=== PATIENT | male | born 1960 | race Caucasian/White ===

== ENCOUNTER → 2017-01-29 | Outpatient (CLI) | payer BC ==
--- NOTE | 2017-01-29 13:54 | RAD ---
Rib series including frontal chest radiograph 4 views of the right ribs 01/29/2017 Indication: Right-sided rib pain. Cough. Findings: No pneumothorax is identified. There is a right basilar infiltrate with possible underlying atelectasis or trace pleural effusion. Minimal left basilar infiltrate also noted. Heart size is normal. No evidence of rib fracture is identified. No evidence of acute osseous abnormality is identified. Impression: 1. Bilateral basilar infiltrates right greater than left. Possible small underlying effusion or atelectasis on the right. Recommend radiographic follow-up to ensure complete resolution common exclude underlying pathology 2. No evidence of acute osseous abnormality.
== END | disposition home or self-care (01) ==
LOC: RAD 13:14
PROVIDERS: ATTEND Nurse Practitioner Family
DX: R91.8 Other nonspecific abnormal finding of lung field (principal); R07.81 Pleurodynia; R05 Cough
CPT/HCPCS: 71101

== ENCOUNTER 2017-02-15 11:34 | Inpatient (IN) | payer BC ==
[~2017-02-15] VITALS: Ht 188 cm; Wt 112.9 kg
[2017-02-15] VITALS (14 sets, daily range): BP systolic 107–154; BP diastolic 61–92
--- NOTE | 2017-02-15 11:52 | EKG ---
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
[2017-02-15 12:01] LABS: BASO # 0.1 x10^3/uL (0.0-0.2); BASO % 1 % (0-3); EOS % 5 % (0-3); HEMOGLOBIN 15.2 g/dL (13.0-17.5); LYMPH # 1.1 x10^3/uL (1.0-4.8); LYMPH % 11 % (24-48); MEAN CORPUSCULAR HEMOGLOBIN 29 pg (25-35); MEAN CORPUSCULAR HGB CONC 35 g/dL (31-37); MEAN CORPUSCULAR VOLUME 84 fL (79-100); MONO % 6 % (0-9); NEUT % 77 % (31-73); PLATELET COUNT 184 x10^3/uL (140-400); RED BLOOD COUNT 5.26 x10^6/uL (4.30-5.70); RED CELL DISTRIBUTION WIDTH 13.4 % (11.5-14.5); WHITE BLOOD COUNT 10.5 x10^3/uL (4.0-11.0)
[2017-02-15] MEDS ORDERED: dilTIAZem IV PUSH 25 MG/5 ML VIAL ONE (12:01)
[2017-02-15 12:11] LABS: CALCIUM 9.2 mg/dL (8.5-10.1); CREATININE 1.1 mg/dL (0.7-1.3); GFR 69.5; POTASSIUM 4.3 mmol/L (3.5-5.1)
[2017-02-15 12:13] LABS: INR 1.2 (0.8-1.1); PROTHROMBIN TIME PATIENT 14.1 SEC (11.7-14.0)
--- NOTE | 2017-02-15 12:14 | PHYS DOC ---
Adult General Chief Complaint Chief Complaint: Palpitations HPI HPI Patient is a 56 year old male who presents with tachycardia. He states his symptoms started about 3 weeks ago after he was working out in his yard and he started having body aches in his chest. He states his symptoms get worse. He saw a chiropractor who told him he had [address] He states later that night after they put his ribs back into place at she felt worse. He was seen by his primary care physician and was given muscle relaxants and a week later he had some mild hemoptysis and was started on Levaquin. He states today his symptoms got worse. He denies any shortness of breath fevers chills or chest pain but he just feels weak. He states 2 days ago he saw his primary care physician his heart rate was 77. He denies any other past medical history other than taking Levaquin and Flexeril right now. Review of Systems Review of Systems Constitutional: Denies fever or chills [] Eyes: Denies change in visual acuity, redness, or eye pain [] HENT: Denies nasal congestion or sore throat [] Respiratory: Denies cough or shortness of breath [] Cardiovascular: No additional information not addressed in HPI [] GI: Denies abdominal pain, nausea, vomiting, bloody stools or diarrhea [] : Denies dysuria or hematuria [] Musculoskeletal: Denies back pain or joint pain [] Integument: Denies rash or skin lesions [] Neurologic: Denies headache, focal weakness or sensory changes [] Endocrine: Denies polyuria or polydipsia [] Current Medications Current Medications Current Medications Medications (Trade) Dose Ordered Sig/Yuridia Start Time Stop Time Status Last Admin Dose Admin Diltiazem HCl (Cardizem) 25 mg STK-MED ONCE 02/15/17 12:01 02/15/17 12:02 DC Diltiazem HCl 125 mg/Dextrose 125 ml @ 0 mls/hr 1X ONCE 02/15/17 12:15 02/15/17 12:16 DC 02/15/17 12:23 5 MLS/HR Allergies Allergies Physical Exam Physical Exam Constitutional: Well developed, well nourished, no acute distress, non-toxic appearance. [] HENT: Normocephalic, atraumatic, bilateral external ears normal, oropharynx moist, no oral exudates, nose normal. [] Eyes: PERRLA, EOMI, conjunctiva normal, no discharge. [] Neck: Normal range of motion, no tenderness, supple, no stridor. [] Cardiovascular:Heart rate regular rhythm, no murmur [] Lungs & Thorax: Bilateral breath sounds clear to auscultation [] Abdomen: Bowel sounds normal, soft, no tenderness, no masses, no pulsatile masses. [] Skin: Warm, dry, no erythema, no rash. [] Back: No tenderness, no CVA tenderness. [] Extremities: No tenderness, no cyanosis, no clubbing, ROM intact, no edema. [] Neurologic: Alert and oriented X 3, normal motor function, normal sensory function, no focal deficits noted. [] Psychologic: Affect normal, judgement normal, mood normal. [] Current Patient Data Vital Signs Vital Signs Date Time Temp Pulse Resp B/P (MAP) Pulse Ox O2 Delivery O2 Flow Rate FiO2 02/15/17 12:25 148 21 119/86 (97) 98 Nasal Cannula 2.0 02/15/17 11:40 98.4 98.4 Lab Values Laboratory Tests Test 02/15/17 11:49 White Blood Count 10.5 x10^3/uL (4.0-11.0) Red Blood Count 5.26 x10^6/uL (4.30-5.70) Hemoglobin 15.2 g/dL (13.0-17.5) Hematocrit 44.0 % (39.0-53.0) Mean Corpuscular Volume 84 fL (79-100) Mean Corpuscular Hemoglobin 29 pg (25-35) Mean Corpuscular Hemoglobin Concent 35 g/dL (31-37) Red Cell Distribution Width 13.4 % (11.5-14.5) Platelet Count 184 x10^3/uL (140-400) Neutrophils (%) (Auto) 77 % (31-73) H Lymphocytes (%) (Auto) 11 % (24-48) L Monocytes (%) (Auto) 6 % (0-9) Eosinophils (%) (Auto) 5 % (0-3) H Basophils (%) (Auto) 1 % (0-3) Neutrophils # (Auto) 8.0 x10^3uL (1.8-7.7) H Lymphocytes # (Auto) 1.1 x10^3/uL (1.0-4.8) Monocytes # (Auto) 0.7 x10^3/uL (0.0-1.1) Eosinophils # (Auto) 0.5 x10^3/uL (0.0-0.7) Basophils # (Auto) 0.1 x10^3/uL (0.0-0.2) Prothrombin Time 14.1 SEC (11.7-14.0) H Prothrombin Time INR 1.2 (0.8-1.1) H D-Dimer (Kelsey) 3.96 ug/mlFEU (0.00-0.50) H Sodium Level 139 mmol/L (136-145) Potassium Level 4.3 mmol/L (3.5-5.1) Chloride Level 103 mmol/L (98-107) Carbon Dioxide Level 27 mmol/L (21-32) Anion Gap 9 (6-14) Blood Urea Nitrogen 15 mg/dL (8-26) Creatinine 1.1 mg/dL (0.7-1.3) Estimated GFR (Cockcroft-Gault) 69.5 Glucose Level 113 mg/dL (70-99) H Calcium Level 9.2 mg/dL (8.5-10.1) Magnesium Level 2.0 mg/dL (1.8-2.4) Creatine Kinase 136 U/L (39-308) Creatine Kinase MB (Mass) 1.2 ng/mL (0.0-3.6) Creatine Kinase MB Relative Index 0.9 % (0-4) Troponin I Quantitative 0.023 ng/mL (0.000-0.055) KB-Pji-C-Type Natriuretic Peptide 243 pg/mL (0-124) H Lipase 127 U/L (73-393) Thyroid Stimulating Hormone (TSH) 3.246 uIU/mL (0.358-3.74) Laboratory Tests 02/15/17 11:49 Laboratory Tests 02/15/17 11:49 EKG EKG EKG shows sinus tach [address] elevations or T-wave inversions, QTC 4 and 45 ms, normal axis, and believe this is a flutter based on my interpretation, as interpreted by me. Radiology/Procedures Radiology/Procedures [] Impressions: A flutter Course & Med Decision Making Course & Med Decision Making Pertinent Labs and Imaging studies reviewed. (See chart for details) I believe his EKG is a flutter, he was started on 10 of diltiazem IV push and then a drip. CT angios pending at this time. Patient is being admitted to the hospitalist Dr. Rousseau, in stable condition. His rate has improved from the 150s. Dragon Disclaimer Dragon Disclaimer This electronic medical record was generated, in whole or in part, using a voice recognition dictation system. Departure Departure Impression: Primary Impression: Tachycardia Disposition: 09 ADMITTED INPATIENT Admitting Physician: Jaja Rousseau Condition: STABLE Referrals: SIOMARA GRANT MD (PCP) RANDALL MALONE MD Feb 15, 2017 12:14
[2017-02-15] MEDS ORDERED: dilTIAZem IV PUSH 25 MG/5 ML VIAL IVP ONE (12:15)
--- NOTE | 2017-02-15 12:15 | RAD ---
Portable AP upright view CXR: Clinical indications: Tachycardia and chest pain. Comparison: January 21, 2017. Findings: No acute lung infiltrate or pleural effusion or pulmonary edema or lung mass or pneumothorax is seen. The heart size, pulmonary vasculature, mediastinum and both maksim are unremarkable. Impression: No acute radiographic abnormality is seen.
[2017-02-15 12:25] LABS: CKMB MASS 1.2 ng/mL (0.0-3.6)
[2017-02-15] MEDS ORDERED: IOHEXOL 300 MG/ML 75 ML VIAL IV ONE (13:45)
--- NOTE | 2017-02-15 14:57 | RAD ---
CTA of the chest with and without contrast Clinical indications: Chest pain Shortness of breath. Irregular heartbeat. Tachycardia. Productive cough. Technique: Noncontrast axial localizer was performed. After IV infusion of 75 cc of Omnipaque 300, helical CT scanning of the chest was performed using the CT pulmonary embolism protocol. A coronal MIP reconstruction was generated. PQRS Compliance Statement: One or more of the following individualized dose reduction techniques were utilized for this examination: 1. Automated exposure control 2. Adjustment of the mA and/or kV according to patient size 3. Use of iterative reconstruction technique Comparison: No previous chest CT available. Findings: Moderate pulmonary embolism is seen bilaterally. On the right side, emboli are seen within the right main pulmonary artery and right lower lobe and right upper lobe pulmonary arteries. There is no opacification of posterior and medial basal segment pulmonary arteries of the right lower lobe. On the left side, embolism is seen within the proximal left lower lobe pulmonary artery extending into secondary branches small pulmonary seen within the left upper lobe pulmonary arteries extending into the apex. No saddle embolism is seen within the main pulmonary trunk. No focal aneurysmal dilatation or dissection of the thoracic aorta is seen. The heart size is at the upper limits of normal. No pericardial effusion is seen. No enlarged thoracic lymphadenopathy is seen. Moderate size right-sided pleural effusion is seen. There is associated compressive atelectasis and/or consolidation of the right lower lobe. Minimal left-sided pleural effusion is seen. There is mild posterior costophrenic angle atelectasis on the left side. A small 4 mm noncalcified lung nodule is seen within the periphery of the left upper lobe. The proximal bronchial tree is patent. No adrenal mass is seen. There is a cyst of the posterior aspect of the lateral segment of left lobe liver. No osteolytic process is seen. IMPRESSION: Moderate bilateral pulmonary emboli. Moderate size right-sided pleural effusion with associated compressive atelectasis or consolidation of the right lower lobe. Minimal left-sided pleural effusion is seen. 4 mm noncalcified lung nodule within the left upper lobe. If at high risk for lung malignancy, follow-up chest CT in 12 months is recommended according to the Fleischner criteria. If the patient has primary malignancy, then a follow-up chest CT in 3 months may be needed. Note-this critical result was called to the patient's floor nurse, Ely, at 2:53 PM on February 15, 2017.
[2017-02-15] MEDS ORDERED: ONDANSETRON PF 4 MG/2 ML VIAL. IV PRN (15:00)
[2017-02-15] MEDS ORDERED: ONDANSETRON ODT 4 MG TAB.RAPDIS. PO PRN (15:00)
[2017-02-15] MEDS ORDERED: ACETAMINOPHEN 500 MG TABLET PO PRN (15:00)
[2017-02-15] MEDS ORDERED: MORPHINE SULFATE 2 MG/ML DISP.SYRIN. IV PRN (15:00)
--- NOTE | 2017-02-15 15:54 | PDOC1 ---
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 BUt today more SOA, palpitations hence went to ER and was found to have atrial flutter. News to patient, no past medical, clean living, very active, no recent sx, no meds at home, non smoker, non drinking, CTA done bec of clincial hx and elevate d dimer and shows moderate sized bilateral PE, He is hemodynamically stable, no leg swelling, denies fam hx of hypercoag d.o Past Medical History Cardiovascular: No pertinent hx Pulmonary: No pertinent hx GI: No pertinent hx Heme/Onc: No pertinent hx Hepatobiliary: No pertinent hx Psych: No pertinent hx Rheumatologic: No pertinent hx Infectious disease: No pertinent hx ENT: No pertinent hx Renal/: No pertinent hx Endocrine: No pertinent hx Dermatology: No pertinent hx Past Surgical History Past Surgical History: No pertinent history Family History Family History: No Significant Social History Smoke: No ALCOHOL: none Drugs: None Current Problem List Problem List Problems Medical Problems: (1) Tachycardia Status: Acute Problems: Current Medications Current Medications Current Medications Diltiazem HCl (Cardizem) 10 mg 1X ONCE IVP Last administered on 02/15/17 12: 08; Start 02/15/17 at 12:15; Stop 02/15/17 at 12:16; Status DC Diltiazem HCl 125 mg/Dextrose 125 ml @ 0 mls/hr 1X ONCE IV Last administered on 02/15/17 12:23; Start 02/15/17 at 12:15; Stop 02/15/17 at 12:16; Status DC Diltiazem HCl (Cardizem) 25 mg STK-MED ONCE .ROUTE ; Start 02/15/17 at 12:01; Stop 02/15/17 at 12:02; Status DC Iohexol (Omnipaque 300 Mg/ml) 75 ml 1X ONCE IV Last administered on 13:53; Start 02/15/17 at 13:45; Stop 02/15/17 at 13:50; Status DC Enoxaparin Sodium (Lovenox 120mg Syringe) 120 mg Q12HR SQ ; Start 02/15/17 at 21:00 Enoxaparin Sodium (Lovenox 120mg Syringe) 120 mg 1X ONCE SQ Last administered on 02/15/17 15:24; Start 02/15/17 at 15:00; Stop 02/15/17 at 15:01; Status DC Acetaminophen (Tylenol) 500 mg PRN Q6HRS PRN PO MILD PAIN / TEMP; Start at 15:00 Ondansetron HCl (Zofran) 4 mg PRN Q6HRS PRN IV NAUSEA/VOMITING; Start at 15:00 Ondansetron HCl (Zofran Odt) 4 mg PRN Q6HRS PRN PO NAUSEA/VOMITING; Start at 15:00 Morphine Sulfate 2 mg PRN Q2HR PRN IV PAIN; Start 02/15/17 at 15:00 Allergies Allergies: Coded Allergies: Penicillins (Verified Allergy, Unknown, Unknown, 02/15/17) Childhood allergy, unknown response. ROS Review of System as per HPI, all else is neg Physical Exam General: Alert, Oriented X3, Cooperative, No acute distress HEENT: Atraumatic, PERRLA, EOMI Lungs: Clear to auscultation Heart: S1S2, RRR, no thrills, no rubs Cardiovascular: S1, S2 Abdomen: Normal bowel sounds, Soft, No tenderness, No hepatosplenomegaly, No masses Male Genitals Exam: normal genitalia, normal prostate PELVIC: Nml ext genitalia Extremities: No clubbing, No cyanosis, No edema, Normal pulses, No tenderness/ swelling Skin: No rashes, No breakdown, No significant lesion Neuro: Normal gait, Normal speech, Strength at 5/5 X4 ext, Normal tone, Sensation intact, Cranial nerves 3-12 NL, Reflexes 2+ Psych/Mental Status: Mental status NL, Mood NL Vitals Vitals Vital Signs Date Time Temp Pulse Resp B/P (MAP) Pulse Ox O2 Delivery O2 Flow Rate FiO2 02/15/17 12:55 149 23 118/85 (96) 99 Nasal Cannula 2.0 02/15/17 11:40 98.4 98.4 Labs Labs Laboratory Tests Test 02/15/17 11:49 White Blood Count 10.5 x10^3/uL (4.0-11.0) Red Blood Count 5.26 x10^6/uL (4.30-5.70) Hemoglobin 15.2 g/dL (13.0-17.5) Hematocrit 44.0 % (39.0-53.0) Mean Corpuscular Volume 84 fL (79-100) Mean Corpuscular Hemoglobin 29 pg (25-35) Mean Corpuscular Hemoglobin Concent 35 g/dL (31-37) Red Cell Distribution Width 13.4 % (11.5-14.5) Platelet Count 184 x10^3/uL (140-400) Neutrophils (%) (Auto) 77 % (31-73) Lymphocytes (%) (Auto) 11 % (24-48) Monocytes (%) (Auto) 6 % (0-9) Eosinophils (%) (Auto) 5 % (0-3) Basophils (%) (Auto) 1 % (0-3) Neutrophils # (Auto) 8.0 x10^3uL (1.8-7.7) Lymphocytes # (Auto) 1.1 x10^3/uL (1.0-4.8) Monocytes # (Auto) 0.7 x10^3/uL (0.0-1.1) Eosinophils # (Auto) 0.5 x10^3/uL (0.0-0.7) Basophils # (Auto) 0.1 x10^3/uL (0.0-0.2) Prothrombin Time 14.1 SEC (11.7-14.0) Prothromb Time International Ratio 1.2 (0.8-1.1) D-Dimer (Kelsey) 3.96 ug/mlFEU (0.00-0.50) Sodium Level 139 mmol/L (136-145) Potassium Level 4.3 mmol/L (3.5-5.1) Chloride Level 103 mmol/L (98-107) Carbon Dioxide Level 27 mmol/L (21-32) Anion Gap 9 (6-14) Blood Urea Nitrogen 15 mg/dL (8-26) Creatinine 1.1 mg/dL (0.7-1.3) Estimated GFR (Cockcroft-Gault) 69.5 Glucose Level 113 mg/dL (70-99) Calcium Level 9.2 mg/dL (8.5-10.1) Magnesium Level 2.0 mg/dL (1.8-2.4) Creatine Kinase 136 U/L (39-308) Creatine Kinase MB (Mass) 1.2 ng/mL (0.0-3.6) Creatine Kinase MB Relative Index 0.9 % (0-4) Troponin I Quantitative 0.023 ng/mL (0.000-0.055) IM-Iip-X-Type Natriuretic Peptide 243 pg/mL (0-124) Lipase 127 U/L (73-393) Thyroid Stimulating Hormone (TSH) 3.246 uIU/mL (0.358-3.74) Laboratory Tests Test 02/15/17 11:49 White Blood Count 10.5 x10^3/uL (4.0-11.0) Red Blood Count 5.26 x10^6/uL (4.30-5.70) Hemoglobin 15.2 g/dL (13.0-17.5) Hematocrit 44.0 % (39.0-53.0) Mean Corpuscular Volume 84 fL (79-100) Mean Corpuscular Hemoglobin 29 pg (25-35) Mean Corpuscular Hemoglobin Concent 35 g/dL (31-37) Red Cell Distribution Width 13.4 % (11.5-14.5) Platelet Count 184 x10^3/uL (140-400) Neutrophils (%) (Auto) 77 % (31-73) Lymphocytes (%) (Auto) 11 % (24-48) Monocytes (%) (Auto) 6 % (0-9) Eosinophils (%) (Auto) 5 % (0-3) Basophils (%) (Auto) 1 % (0-3) Neutrophils # (Auto) 8.0 x10^3uL (1.8-7.7) Lymphocytes # (Auto) 1.1 x10^3/uL (1.0-4.8) Monocytes # (Auto) 0.7 x10^3/uL (0.0-1.1) Eosinophils # (Auto) 0.5 x10^3/uL (0.0-0.7) Basophils # (Auto) 0.1 x10^3/uL (0.0-0.2) Prothrombin Time 14.1 SEC (11.7-14.0) Prothromb Time International Ratio 1.2 (0.8-1.1) D-Dimer (Kelsey) 3.96 ug/mlFEU (0.00-0.50) Sodium Level 139 mmol/L (136-145) Potassium Level 4.3 mmol/L (3.5-5.1) Chloride Level 103 mmol/L (98-107) Carbon Dioxide Level 27 mmol/L (21-32) Anion Gap 9 (6-14) Blood Urea Nitrogen 15 mg/dL (8-26) Creatinine 1.1 mg/dL (0.7-1.3) Estimated GFR (Cockcroft-Gault) 69.5 Glucose Level 113 mg/dL (70-99) Calcium Level 9.2 mg/dL (8.5-10.1) Magnesium Level 2.0 mg/dL (1.8-2.4) Creatine Kinase 136 U/L (39-308) Creatine Kinase MB (Mass) 1.2 ng/mL (0.0-3.6) Creatine Kinase MB Relative Index 0.9 % (0-4) Troponin I Quantitative 0.023 ng/mL (0.000-0.055) OQ-Ord-H-Type Natriuretic Peptide 243 pg/mL (0-124) Lipase 127 U/L (73-393) Thyroid Stimulating Hormone (TSH) 3.246 uIU/mL (0.358-3.74) VTE Prophylaxis Ordered VTE Prophylaxis Devices: Yes VTE Pharmacological Prophylaxi: Yes Assessment/Plan Assessment/Plan 1. 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 NEw atrial flutter POA, now NSR - cards has been consulted, TSH pending, likely sec to above, echo check Dw him and RN at bedside, all qs answered dw whole family at bedside ALLEN MURILLO MD Feb 15, 2017 15:54
--- NOTE | 2017-02-15 17:16 | PDOC ---
PULMONARY PROGRESS NOTES Vitals Vital Signs Date Time Temp Pulse Resp B/P (MAP) Pulse Ox O2 Delivery O2 Flow Rate FiO2 02/15/17 16:19 Nasal Cannula 2.0 02/15/17 14:53 97.7 77 20 115/77 (90) 96 97.7 Cardiovascular: S1, S2 Labs Laboratory Tests Test 02/15/17 11:49 White Blood Count 10.5 x10^3/uL (4.0-11.0) Red Blood Count 5.26 x10^6/uL (4.30-5.70) Hemoglobin 15.2 g/dL (13.0-17.5) Hematocrit 44.0 % (39.0-53.0) Mean Corpuscular Volume 84 fL (79-100) Mean Corpuscular Hemoglobin 29 pg (25-35) Mean Corpuscular Hemoglobin Concent 35 g/dL (31-37) Red Cell Distribution Width 13.4 % (11.5-14.5) Platelet Count 184 x10^3/uL (140-400) Neutrophils (%) (Auto) 77 % (31-73) Lymphocytes (%) (Auto) 11 % (24-48) Monocytes (%) (Auto) 6 % (0-9) Eosinophils (%) (Auto) 5 % (0-3) Basophils (%) (Auto) 1 % (0-3) Neutrophils # (Auto) 8.0 x10^3uL (1.8-7.7) Lymphocytes # (Auto) 1.1 x10^3/uL (1.0-4.8) Monocytes # (Auto) 0.7 x10^3/uL (0.0-1.1) Eosinophils # (Auto) 0.5 x10^3/uL (0.0-0.7) Basophils # (Auto) 0.1 x10^3/uL (0.0-0.2) Prothrombin Time 14.1 SEC (11.7-14.0) Prothromb Time International Ratio 1.2 (0.8-1.1) D-Dimer (Kelsey) 3.96 ug/mlFEU (0.00-0.50) Sodium Level 139 mmol/L (136-145) Potassium Level 4.3 mmol/L (3.5-5.1) Chloride Level 103 mmol/L (98-107) Carbon Dioxide Level 27 mmol/L (21-32) Anion Gap 9 (6-14) Blood Urea Nitrogen 15 mg/dL (8-26) Creatinine 1.1 mg/dL (0.7-1.3) Estimated GFR (Cockcroft-Gault) 69.5 Glucose Level 113 mg/dL (70-99) Calcium Level 9.2 mg/dL (8.5-10.1) Magnesium Level 2.0 mg/dL (1.8-2.4) Creatine Kinase 136 U/L (39-308) Creatine Kinase MB (Mass) 1.2 ng/mL (0.0-3.6) Creatine Kinase MB Relative Index 0.9 % (0-4) Troponin I Quantitative 0.023 ng/mL (0.000-0.055) OD-Coh-K-Type Natriuretic Peptide 243 pg/mL (0-124) Lipase 127 U/L (73-393) Thyroid Stimulating Hormone (TSH) 3.246 uIU/mL (0.358-3.74) Laboratory Tests Test 02/15/17 11:49 White Blood Count 10.5 x10^3/uL (4.0-11.0) Red Blood Count 5.26 x10^6/uL (4.30-5.70) Hemoglobin 15.2 g/dL (13.0-17.5) Hematocrit 44.0 % (39.0-53.0) Mean Corpuscular Volume 84 fL (79-100) Mean Corpuscular Hemoglobin 29 pg (25-35) Mean Corpuscular Hemoglobin Concent 35 g/dL (31-37) Red Cell Distribution Width 13.4 % (11.5-14.5) Platelet Count 184 x10^3/uL (140-400) Neutrophils (%) (Auto) 77 % (31-73) Lymphocytes (%) (Auto) 11 % (24-48) Monocytes (%) (Auto) 6 % (0-9) Eosinophils (%) (Auto) 5 % (0-3) Basophils (%) (Auto) 1 % (0-3) Neutrophils # (Auto) 8.0 x10^3uL (1.8-7.7) Lymphocytes # (Auto) 1.1 x10^3/uL (1.0-4.8) Monocytes # (Auto) 0.7 x10^3/uL (0.0-1.1) Eosinophils # (Auto) 0.5 x10^3/uL (0.0-0.7) Basophils # (Auto) 0.1 x10^3/uL (0.0-0.2) Prothrombin Time 14.1 SEC (11.7-14.0) Prothromb Time International Ratio 1.2 (0.8-1.1) D-Dimer (Kelsey) 3.96 ug/mlFEU (0.00-0.50) Sodium Level 139 mmol/L (136-145) Potassium Level 4.3 mmol/L (3.5-5.1) Chloride Level 103 mmol/L (98-107) Carbon Dioxide Level 27 mmol/L (21-32) Anion Gap 9 (6-14) Blood Urea Nitrogen 15 mg/dL (8-26) Creatinine 1.1 mg/dL (0.7-1.3) Estimated GFR (Cockcroft-Gault) 69.5 Glucose Level 113 mg/dL (70-99) Calcium Level 9.2 mg/dL (8.5-10.1) Magnesium Level 2.0 mg/dL (1.8-2.4) Creatine Kinase 136 U/L (39-308) Creatine Kinase MB (Mass) 1.2 ng/mL (0.0-3.6) Creatine Kinase MB Relative Index 0.9 % (0-4) Troponin I Quantitative 0.023 ng/mL (0.000-0.055) PB-Nfl-W-Type Natriuretic Peptide 243 pg/mL (0-124) Lipase 127 U/L (73-393) Thyroid Stimulating Hormone (TSH) 3.246 uIU/mL (0.358-3.74) Impression . NOTE DICTATED ACUTE PE PLEURAL EFFUSION RELATED TO PE, NO NEED FOR THORACENTESIS VENOUS DOPPLER OF LOWER EXT ODESSA MCCOY MD Feb 15, 2017 17:16
[2017-02-15] MEDS: RIVAROXABAN 15 MG TABLET. PO SCH (17:54)
[2017-02-15] MEDS ORDERED: LEVO500T8 PO (19:25)
[2017-02-15] MEDS ORDERED: CYCL7.5T PO (19:25)
--- NOTE | 2017-02-15 19:25 | RAD ---
Bilateral Lower Extremity Venous Doppler Ultrasound History: Bilateral PE Comparison: None Procedure: Color flow, duplex, spectral analysis and 2D images are obtained with and without compression in the area of the common femoral vein, superficial femoral vein - femoral vein junction, main femoral vein (superficial femoral vein) and popliteal vein. Veins of the proximal calf are also imaged. Findings: There is DVT within the right popliteal vein. There is normal duplex flow, color flow and compressibility of all remaining visualized vein segments. No evidence of deep venous thrombus is seen on the left. Impression: Positive DVT in the right popliteal vein. Electronically signed by: Renzo Martins III, MD (02/15/2017 7:22 PM) [id number]
[2017-02-16] VITALS (9 sets, daily range): BP systolic 89–124; BP diastolic 53–73
--- NOTE | 2017-02-16 04:40 | CONS ---
DATE OF CONSULTATION: 02/15/2017 ATTENDING PHYSICIAN: Dr. Jaja Rousseau REASON FOR CONSULTATION: The patient is seen in pulmonary consultation at the request of Dr. Rousseau for abnormal CT of the chest revealing nodule and pulmonary embolism along with right-sided effusion. HISTORY OF PRESENT ILLNESS: The patient is a 56-year-old male that presented with acute onset of shortness of breath associated with palpitations. This morning, he was more short of breath than usual. The patient traveled approximately two weeks ago and took 1-1/2 hour flight to [place]. He returned and started to experience some pleuritic type of discomfort. His symptoms have progressed to increasing shortness of breath, hemoptysis and palpitation. As a consequence, he presented. He underwent CT of the chest. I personally reviewed it. There is bilateral pulmonary emboli. There is effusion on the right. He reports no paroxysmal nocturnal dyspnea or pedal edema. He reports no calf pain in the lower extremities. There is no family history of thrombophilia. He does not have a history of cancer. He recently had a colonoscopy, which was negative. PAST MEDICAL HISTORY: None. PAST SURGICAL HISTORY: He has had previous laparoscopic knee surgery over 20 years ago. FAMILY HISTORY: No family history of thrombophilia. SOCIAL HISTORY: He denies alcohol or tobacco. 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 CURRENT MEDICATION: List was reviewed. ALLERGIES: PENICILLIN. PHYSICAL EXAMINATION: GENERAL: The patient was in no respiratory distress. VITAL SIGNS: Stable. O2 saturation currently on 2 liters was 98%. HEENT: Eyes: The sclerae were nonicteric. NECK: Jugular venous distention was not elevated. No lymphadenopathy. CHEST: Full expansion. LUNGS: Adequate airway flow and no wheezes. CARDIOVASCULAR: Regular rate and rhythm with S1, S2, no S3. ABDOMEN: Soft, nontender and nondistended. EXTREMITIES: No clubbing, cyanosis or edema. NEUROLOGIC: The patient was awake, alert and following commands. A detailed neuro exam was not performed. LABORATORY DATA: Reviewed. White count was normal. Hemoglobin and hematocrit were normal. Electrolytes were noted. D-dimer was elevated. IMPRESSION: 1. Acute respiratory failure present upon admission secondary to acute pulmonary embolism. 2. Acute pulmonary embolism. 3. Right-sided effusion related to the pulmonary embolism. 4. Pleurisy related to pulmonary embolism. 5. Left upper lobe nodule 4 mm in a nonsmoker, no need to repeat scan. 6. Palpitation secondary to above. PLAN: 1. Continue Lovenox 2. Initiate Eliquis. 3. The patient was instructed not to travel for the next 2 weeks. 4. Consult cardiology, already performed, suspect arrhythmia related to PE. 5. Check 6-minute walk prior to discharge. 6. Recommend treatment for 6 months and then rule out hypercoagulable state. I do appreciate the privilege in sharing in the patient's care. ODESSA MCCOY MD DR: RYAN/luciana JOB#: [id number] / [id number]
[2017-02-16 04:51] LABS: BASO # 0.1 x10^3/uL (0.0-0.2); BASO % 1 % (0-3); EOS % 8 % (0-3); HEMATOCRIT 38.5 % (39.0-53.0); LYMPH # 1.7 x10^3/uL (1.0-4.8); LYMPH % 21 % (24-48); MEAN CORPUSCULAR HEMOGLOBIN 28 pg (25-35); MEAN CORPUSCULAR HGB CONC 34 g/dL (31-37); MEAN CORPUSCULAR VOLUME 84 fL (79-100); MONO % 7 % (0-9); NEUT % 64 % (31-73); PLATELET COUNT 178 x10^3/uL (140-400); RED BLOOD COUNT 4.57 x10^6/uL (4.30-5.70); RED CELL DISTRIBUTION WIDTH 13.8 % (11.5-14.5); WHITE BLOOD COUNT 8.3 x10^3/uL (4.0-11.0)
[2017-02-16 05:09] LABS: CALCIUM 8.4 mg/dL (8.5-10.1); CREATININE 0.9 mg/dL (0.7-1.3); GFR 87.6
--- NOTE | 2017-02-16 09:57 | PDOC2 ---
PETR LOVE BLEACH TESTER 02/16/17 0957: CARDIAC CONSULT DATE OF CONSULT Date of Consult DATE: 02/16/17 TIME: 09:52 REASON FOR CONSULT Reason for Consult: Atrial Flutter REFERRING PHYSICIAN Referring Physician: Onelia SOURCE Source: Chart review, Patient HISTORY OF PRESENT ILLNESS HISTORY OF PRESENT ILLNESS This is a pleasant 56 yo male admitted for complains of weakness, SOA, and chest discomfort. Upon admission he was also noted with atrial flutter and was placed on cardizem. By hx this is new for him. He works with mostly sitting all day, sedentary. 3 weeks ago he started complaining of some SOA mainly due to inability to take a deep breath and rib pain more like spasm originating to his right rib cage then went to his left. It was initially thought for displaced ribs which he saw a chiropractor then later was given antibiotics. He was then placed on antibiotics a different one last week since he was coughing still and noted with hemoptysis. His weakness became worse as well as his coughing. Denies any past CAD, arrhythmia, VTE, clotting disorders and he does not take any routine medications except for the ones he was recently given. Upon further imaging he was noted with bilateral PE and RLE DVT. Denies any CA or any recent long distance travel. He did have some swelling to both ankles about 3 weeks ago but has resolved immediately since then. Denies any leg pains. PAST MEDICAL HISTORY Past Medical History No pertinent history PAST SURGICAL HISTORY Past Surgical History: Arthroscopy (left knee remotely) FAMILY HISTORY Family History: Cancer SOCIAL HISTORY Smoke: No ALCOHOL: none Drugs: None Lives: with Family CURRENT MEDICATIONS CURRENT MEDICATIONS Current Medications Medications (Trade) Dose Ordered Sig/Yuridia Route PRN Reason Start Time Stop Time Status Last Admin Dose Admin Diltiazem HCl (Cardizem) 10 mg 1X ONCE IVP 02/15/17 12:02/15/17 12:16 DC 02/15/17 12:08 Diltiazem HCl 125 mg/Dextrose 125 ml @ 0 mls/hr 1X ONCE IV 02/15/17 12:15 02/15/17 12:16 DC 02/15/17 12:23 Iohexol (Omnipaque 300 Mg/ml) 75 ml 1X ONCE IV 02/15/17 13:45 02/15/17 13:50 DC 02/15/17 13:53 Enoxaparin Sodium (Lovenox 120mg Syringe) 120 mg 1X ONCE SQ 02/15/17 15:00 02/15/17 15:01 DC 02/15/17 15:24 Rivaroxaban (Xarelto) 15 mg BIDWMEALS PO 02/15/17 17:00 02/15/17 17:54 Diltiazem HCl 125 mg/Dextrose 125 ml @ 0 mls/hr CONT PRN IV SEE I/O RECORD 02/16/17 06:00 02/16/17 06:12 ALLERGIES ALLERGIES: Coded Allergies: Penicillins (Verified Allergy, Intermediate, Unknown, 02/15/17) Childhood allergy, unknown response. albuterol (Verified Allergy, Intermediate, Shortness of Air, 02/15/17) ROS Review of System 14 point ROS evlauated with pertinent positives noted per HPI PHYSICAL EXAM General: Alert, Oriented X3, Cooperative, No acute distress HEENT: Atraumatic, Mucous membr. moist/pink Lungs: Clear to auscultation, Normal air movement Heart: Regular rate, Normal S1, Normal S2, Other (2/6 systolic murmur to LLS border) Abdomen: Soft, No tenderness Extremities: No cyanosis, No edema Skin: No breakdown, No significant lesion Neuro: Normal speech, Sensation intact Psych/Mental Status: Mood NL MUSCULOSKELETAL: Osteoarthritic changes both hands VITALS VITALS Vital Signs Date Time Temp Pulse Resp B/P (MAP) Pulse Ox O2 Delivery O2 Flow Rate FiO2 02/16/17 08:38 Nasal Cannula 2.0 02/16/17 06:00 64 116/66 (83) 02/16/17 03:15 97.9 18 99 97.9 LABS Lab: Laboratory Tests Test 02/15/17 11:49 02/15/17 21:15 02/16/17 03:00 White Blood Count 10.5 x10^3/uL (4.0-11.0) 8.3 x10^3/uL (4.0-11.0) Red Blood Count 5.26 x10^6/uL (4.30-5.70) 4.57 x10^6/uL (4.30-5.70) Hemoglobin 15.2 g/dL (13.0-17.5) 13.0 g/dL (13.0-17.5) Hematocrit 44.0 % (39.0-53.0) 38.5 % (39.0-53.0) Mean Corpuscular Volume 84 fL (79-100) 84 fL (79-100) Mean Corpuscular Hemoglobin 29 pg (25-35) 28 pg (25-35) Mean Corpuscular Hemoglobin Concent 35 g/dL (31-37) 34 g/dL (31-37) Red Cell Distribution Width 13.4 % (11.5-14.5) 13.8 % (11.5-14.5) Platelet Count 184 x10^3/uL (140-400) 178 x10^3/uL (140-400) Neutrophils (%) (Auto) 77 % (31-73) 64 % (31-73) Lymphocytes (%) (Auto) 11 % (24-48) 21 % (24-48) Monocytes (%) (Auto) 6 % (0-9) 7 % (0-9) Eosinophils (%) (Auto) 5 % (0-3) 8 % (0-3) Basophils (%) (Auto) 1 % (0-3) 1 % (0-3) Neutrophils # (Auto) 8.0 x10^3uL (1.8-7.7) 5.3 x10^3uL (1.8-7.7) Lymphocytes # (Auto) 1.1 x10^3/uL (1.0-4.8) 1.7 x10^3/uL (1.0-4.8) Monocytes # (Auto) 0.7 x10^3/uL (0.0-1.1) 0.6 x10^3/uL (0.0-1.1) Eosinophils # (Auto) 0.5 x10^3/uL (0.0-0.7) 0.6 x10^3/uL (0.0-0.7) Basophils # (Auto) 0.1 x10^3/uL (0.0-0.2) 0.1 x10^3/uL (0.0-0.2) Prothrombin Time 14.1 SEC (11.7-14.0) Prothromb Time International Ratio 1.2 (0.8-1.1) D-Dimer (Kelsey) 3.96 ug/mlFEU (0.00-0.50) Sodium Level 139 mmol/L (136-145) 141 mmol/L (136-145) Potassium Level 4.3 mmol/L (3.5-5.1) 4.0 mmol/L (3.5-5.1) Chloride Level 103 mmol/L (98-107) 106 mmol/L (98-107) Carbon Dioxide Level 27 mmol/L (21-32) 26 mmol/L (21-32) Anion Gap 9 (6-14) 9 (6-14) Blood Urea Nitrogen 15 mg/dL (8-26) 12 mg/dL (8-26) Creatinine 1.1 mg/dL (0.7-1.3) 0.9 mg/dL (0.7-1.3) Estimated GFR (Cockcroft-Gault) 69.5 87.6 Glucose Level 113 mg/dL (70-99) 94 mg/dL (70-99) Calcium Level 9.2 mg/dL (8.5-10.1) 8.4 mg/dL (8.5-10.1) Magnesium Level 2.0 mg/dL (1.8-2.4) Creatine Kinase 136 U/L (39-308) Creatine Kinase MB (Mass) 1.2 ng/mL (0.0-3.6) Creatine Kinase MB Relative Index 0.9 % (0-4) Troponin I Quantitative 0.023 ng/mL (0.000-0.055) 0.038 ng/mL (0.000-0.055) 0.022 ng/mL (0.000-0.055) YV-Lxq-U-Type Natriuretic Peptide 243 pg/mL (0-124) Lipase 127 U/L (73-393) Thyroid Stimulating Hormone (TSH) 3.246 uIU/mL (0.358-3.74) ASSESSMENT/PLAN ASSESSMENT/PLAN 1. Atrial flutter with RVR: new onset likely due to PE. back in SR with cardizem drip. 2. Bilateral PE/RLE DVT Recommendations 1. NOAC per pulmonary 2. Will titrate off cardizem drip and start on PO metoprolol. Will titrate down per BP trend. 3. TTE 4. Will plan for event monitor and note burden. Problems: KE SALDANA MD 02/17/17 0136: CARDIAC CONSULT ALLERGIES ALLERGIES: Coded Allergies: Penicillins (Verified Allergy, Intermediate, Unknown, 02/15/17) Childhood allergy, unknown response. albuterol (Verified Allergy, Intermediate, Shortness of Air, 02/15/17) ASSESSMENT/PLAN ASSESSMENT/PLAN Late entry for 02/16/2017 Pt.s een and examined. agree with above [employer] note. 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 echo wnl thanks for consultation. Problems: PETR LOVE APRN Feb 16, 2017 09:57 KE SALDANA MD Feb 17, 2017 01:36
[2017-02-16] MEDS ORDERED: METOPROLOL TART IMMED RELEASE 25 MG TABLET. PO SCH (10:00)
[2017-02-16] MEDS: RIVAROXABAN 15 MG TABLET. PO SCH (10:27)
--- NOTE | 2017-02-16 12:24 | PDOC ---
PROGRESS NOTES Chief Complaint Chief Complaint CC: palpitations History of Present Illness History of Present Illness Saw patient at the bedside today. He appears well and not in acute distress. Pulse is regular and heart is ok. Probably will get discharged today if ok with specialists. Consult with Dr. Thapa (Heme and Onc) to discuss hypercoagulable state of the patient. Vitals Vitals Vital Signs Date Time Temp Pulse Resp B/P (MAP) Pulse Ox O2 Delivery O2 Flow Rate FiO2 02/16/17 10:59 96.4 71 18 120/71 (87) 100 Room Air 96.4 02/16/17 08:38 2.0 Physical Exam General: Alert, Oriented X3, Cooperative, No acute distress Heart: Regular rate, Normal S1, Normal S2, Other (2/6 systolic murmur to LLS border) Lungs: Clear Abdomen: Soft, No tenderness Extremities: No cyanosis, No edema, Normal pulses Skin: No breakdown, No significant lesion Labs LABS Laboratory Tests Test 02/15/17 21:15 02/16/17 03:00 Troponin I Quantitative 0.038 ng/mL (0.000-0.055) 0.022 ng/mL (0.000-0.055) White Blood Count 8.3 x10^3/uL (4.0-11.0) Red Blood Count 4.57 x10^6/uL (4.30-5.70) Hemoglobin 13.0 g/dL (13.0-17.5) Hematocrit 38.5 % (39.0-53.0) Mean Corpuscular Volume 84 fL (79-100) Mean Corpuscular Hemoglobin 28 pg (25-35) Mean Corpuscular Hemoglobin Concent 34 g/dL (31-37) Red Cell Distribution Width 13.8 % (11.5-14.5) Platelet Count 178 x10^3/uL (140-400) Neutrophils (%) (Auto) 64 % (31-73) Lymphocytes (%) (Auto) 21 % (24-48) Monocytes (%) (Auto) 7 % (0-9) Eosinophils (%) (Auto) 8 % (0-3) Basophils (%) (Auto) 1 % (0-3) Neutrophils # (Auto) 5.3 x10^3uL (1.8-7.7) Lymphocytes # (Auto) 1.7 x10^3/uL (1.0-4.8) Monocytes # (Auto) 0.6 x10^3/uL (0.0-1.1) Eosinophils # (Auto) 0.6 x10^3/uL (0.0-0.7) Basophils # (Auto) 0.1 x10^3/uL (0.0-0.2) Sodium Level 141 mmol/L (136-145) Potassium Level 4.0 mmol/L (3.5-5.1) Chloride Level 106 mmol/L (98-107) Carbon Dioxide Level 26 mmol/L (21-32) Anion Gap 9 (6-14) Blood Urea Nitrogen 12 mg/dL (8-26) Creatinine 0.9 mg/dL (0.7-1.3) Estimated GFR (Cockcroft-Gault) 87.6 Glucose Level 94 mg/dL (70-99) Calcium Level 8.4 mg/dL (8.5-10.1) Review of Systems Review of Systems fatigue and weakness Assessment and Plan Assessmemt and Plan Problems Medical Problems: (1) Tachycardia Status: Acute Assessment: Hypercoagulable state with PE and DVT Cardiac Arrhythmia Plan: Switch diltiazem drop to pill Continue anticoagulation xarelto Probably discharge today is ok with specialists Consult with Dr. Alanis Young regarding hypercoagulable state Problems: Comment Review of Relevant I have reviewed the following items uma (where applicable) has been applied. Labs Laboratory Tests Test 02/15/17 11:49 02/15/17 21:15 02/16/17 03:00 White Blood Count 10.5 x10^3/uL (4.0-11.0) 8.3 x10^3/uL (4.0-11.0) Red Blood Count 5.26 x10^6/uL (4.30-5.70) 4.57 x10^6/uL (4.30-5.70) Hemoglobin 15.2 g/dL (13.0-17.5) 13.0 g/dL (13.0-17.5) Hematocrit 44.0 % (39.0-53.0) 38.5 % (39.0-53.0) Mean Corpuscular Volume 84 fL (79-100) 84 fL (79-100) Mean Corpuscular Hemoglobin 29 pg (25-35) 28 pg (25-35) Mean Corpuscular Hemoglobin Concent 35 g/dL (31-37) 34 g/dL (31-37) Red Cell Distribution Width 13.4 % (11.5-14.5) 13.8 % (11.5-14.5) Platelet Count 184 x10^3/uL (140-400) 178 x10^3/uL (140-400) Neutrophils (%) (Auto) 77 % (31-73) 64 % (31-73) Lymphocytes (%) (Auto) 11 % (24-48) 21 % (24-48) Monocytes (%) (Auto) 6 % (0-9) 7 % (0-9) Eosinophils (%) (Auto) 5 % (0-3) 8 % (0-3) Basophils (%) (Auto) 1 % (0-3) 1 % (0-3) Neutrophils # (Auto) 8.0 x10^3uL (1.8-7.7) 5.3 x10^3uL (1.8-7.7) Lymphocytes # (Auto) 1.1 x10^3/uL (1.0-4.8) 1.7 x10^3/uL (1.0-4.8) Monocytes # (Auto) 0.7 x10^3/uL (0.0-1.1) 0.6 x10^3/uL (0.0-1.1) Eosinophils # (Auto) 0.5 x10^3/uL (0.0-0.7) 0.6 x10^3/uL (0.0-0.7) Basophils # (Auto) 0.1 x10^3/uL (0.0-0.2) 0.1 x10^3/uL (0.0-0.2) Prothrombin Time 14.1 SEC (11.7-14.0) Prothromb Time International Ratio 1.2 (0.8-1.1) D-Dimer (Kelsey) 3.96 ug/mlFEU (0.00-0.50) Sodium Level 139 mmol/L (136-145) 141 mmol/L (136-145) Potassium Level 4.3 mmol/L (3.5-5.1) 4.0 mmol/L (3.5-5.1) Chloride Level 103 mmol/L (98-107) 106 mmol/L (98-107) Carbon Dioxide Level 27 mmol/L (21-32) 26 mmol/L (21-32) Anion Gap 9 (6-14) 9 (6-14) Blood Urea Nitrogen 15 mg/dL (8-26) 12 mg/dL (8-26) Creatinine 1.1 mg/dL (0.7-1.3) 0.9 mg/dL (0.7-1.3) Estimated GFR (Cockcroft-Gault) 69.5 87.6 Glucose Level 113 mg/dL (70-99) 94 mg/dL (70-99) Calcium Level 9.2 mg/dL (8.5-10.1) 8.4 mg/dL (8.5-10.1) Magnesium Level 2.0 mg/dL (1.8-2.4) Creatine Kinase 136 U/L (39-308) Creatine Kinase MB (Mass) 1.2 ng/mL (0.0-3.6) Creatine Kinase MB Relative Index 0.9 % (0-4) Troponin I Quantitative 0.023 ng/mL (0.000-0.055) 0.038 ng/mL (0.000-0.055) 0.022 ng/mL (0.000-0.055) CO-Hiz-R-Type Natriuretic Peptide 243 pg/mL (0-124) Lipase 127 U/L (73-393) Thyroid Stimulating Hormone (TSH) 3.246 uIU/mL (0.358-3.74) Laboratory Tests Test 02/15/17 21:15 02/16/17 03:00 Troponin I Quantitative 0.038 ng/mL (0.000-0.055) 0.022 ng/mL (0.000-0.055) White Blood Count 8.3 x10^3/uL (4.0-11.0) Red Blood Count 4.57 x10^6/uL (4.30-5.70) Hemoglobin 13.0 g/dL (13.0-17.5) Hematocrit 38.5 % (39.0-53.0) Mean Corpuscular Volume 84 fL (79-100) Mean Corpuscular Hemoglobin 28 pg (25-35) Mean Corpuscular Hemoglobin Concent 34 g/dL (31-37) Red Cell Distribution Width 13.8 % (11.5-14.5) Platelet Count 178 x10^3/uL (140-400) Neutrophils (%) (Auto) 64 % (31-73) Lymphocytes (%) (Auto) 21 % (24-48) Monocytes (%) (Auto) 7 % (0-9) Eosinophils (%) (Auto) 8 % (0-3) Basophils (%) (Auto) 1 % (0-3) Neutrophils # (Auto) 5.3 x10^3uL (1.8-7.7) Lymphocytes # (Auto) 1.7 x10^3/uL (1.0-4.8) Monocytes # (Auto) 0.6 x10^3/uL (0.0-1.1) Eosinophils # (Auto) 0.6 x10^3/uL (0.0-0.7) Basophils # (Auto) 0.1 x10^3/uL (0.0-0.2) Sodium Level 141 mmol/L (136-145) Potassium Level 4.0 mmol/L (3.5-5.1) Chloride Level 106 mmol/L (98-107) Carbon Dioxide Level 26 mmol/L (21-32) Anion Gap 9 (6-14) Blood Urea Nitrogen 12 mg/dL (8-26) Creatinine 0.9 mg/dL (0.7-1.3) Estimated GFR (Cockcroft-Gault) 87.6 Glucose Level 94 mg/dL (70-99) Calcium Level 8.4 mg/dL (8.5-10.1) Medications Current Medications Diltiazem HCl (Cardizem) 10 mg 1X ONCE IVP Last administered on 02/15/17 12: 08; Start 02/15/17 at 12:15; Stop 02/15/17 at 12:16; Status DC Diltiazem HCl 125 mg/Dextrose 125 ml @ 0 mls/hr 1X ONCE IV Last administered on 02/15/17 12:23; Start 02/15/17 at 12:15; Stop 02/15/17 at 12:16; Status DC Diltiazem HCl (Cardizem) 25 mg STK-MED ONCE .ROUTE ; Start 02/15/17 at 12:01; Stop 02/15/17 at 12:02; Status DC Iohexol (Omnipaque 300 Mg/ml) 75 ml 1X ONCE IV Last administered on 13:53; Start 02/15/17 at 13:45; Stop 02/15/17 at 13:50; Status DC Enoxaparin Sodium (Lovenox 120mg Syringe) 120 mg Q12HR SQ ; Start 02/15/17 at 21:00; Stop 02/15/17 at 21:00; Status DC Enoxaparin Sodium (Lovenox 120mg Syringe) 120 mg 1X ONCE SQ Last administered on 02/15/17 15:24; Start 02/15/17 at 15:00; Stop 02/15/17 at 15:01; Status DC Acetaminophen (Tylenol) 500 mg PRN Q6HRS PRN PO MILD PAIN / TEMP; Start at 15:00 Ondansetron HCl (Zofran) 4 mg PRN Q6HRS PRN IV NAUSEA/VOMITING; Start at 15:00 Ondansetron HCl (Zofran Odt) 4 mg PRN Q6HRS PRN PO NAUSEA/VOMITING; Start at 15:00 Morphine Sulfate 2 mg PRN Q2HR PRN IV PAIN; Start 02/15/17 at 15:00 Rivaroxaban (Xarelto) 15 mg BIDWMEALS PO Last administered on 02/16/17 10:27 ; Start 02/15/17 at 17:00 Diltiazem HCl 125 mg/Dextrose 125 ml @ 0 mls/hr CONT PRN IV SEE I/O RECORD Last administered on 02/16/17 06:12; Start 02/16/17 at 06:00; Stop 02/16/17 at 09:56; Status DC Metoprolol Tartrate (Lopressor) 25 mg BID PO Last administered on 02/16/17 10 :27; Start 02/16/17 at 10:00 Active Scripts Active Reported Levofloxacin 500 Mg Tablet 1 Tab PO DAILY Cyclobenzaprine Hcl 7.5 Mg Tablet 7.5 Mg PO TID Vitals/I & O Vital Sign - Last 24 Hours 02/15/17 02/15/17 02/15/17 02/15/17 12:25 12:35 12:45 12:55 Pulse 148 146 146 149 Resp 21 23 21 23 B/P (MAP) 119/86 (97) 106/83 (91) 110/87 (95) 118/85 (96) Pulse Ox 98 99 99 99 O2 Delivery Nasal Cannula Nasal Cannula Nasal Cannula Nasal Cannula O2 Flow Rate 2.0 2.0 2.0 2.0 02/15/17 02/15/17 02/15/17 02/15/17 13:05 13:15 13:30 13:40 Pulse 150 146 146 150 Resp 20 18 21 22 B/P (MAP) 114/79 (91) 131/82 (98) 90/80 (83) 88/73 (78) Pulse Ox 100 100 98 100 O2 Delivery Nasal Cannula Nasal Cannula Nasal Cannula Nasal Cannula O2 Flow Rate 2.0 2.0 2.0 2.0 02/15/17 02/15/17 02/15/17 02/15/17 14:53 14:53 15:00 15:20 Temp 97.7 97.7 97.7 97.7 Pulse 77 77 77 75 Resp 20 20 20 20 B/P (MAP) 115/77 (90) 115/77 (90) 126/74 (91) 107/74 (85) Pulse Ox 96 96 98 98 O2 Delivery Room Air Room Air Nasal Cannula Nasal Cannula 02/15/17 02/15/17 02/15/17 02/15/17 15:35 15:50 16:05 16:19 Pulse 81 75 76 Resp 20 20 20 B/P (MAP) 154/84 (107) 140/79 (99) 134/78 (96) Pulse Ox 100 98 97 O2 Delivery Nasal Cannula Nasal Cannula Nasal Cannula Nasal Cannula O2 Flow Rate 2.0 02/15/17 02/15/17 02/15/17 02/15/17 16:35 17:05 17:35 18:35 Pulse 71 77 75 76 Resp 20 20 20 20 B/P (MAP) 134/79 (97) 148/92 (110) 126/77 (93) 126/71 (89) Pulse Ox 99 98 98 98 O2 Delivery Nasal Cannula Nasal Cannula Nasal Cannula Nasal Cannula 02/15/17 02/15/17 02/15/17 02/15/17 19:35 19:45 20:00 21:00 Temp 98.6 98.6 Pulse 75 78 70 Resp 20 B/P (MAP) 122/73 (89) 128/72 (90) 114/65 (81) Pulse Ox 98 O2 Delivery Nasal Cannula Nasal Cannula O2 Flow Rate 2.0 02/15/17 02/16/17 02/16/17 02/16/17 22:40 00:01 01:00 02:00 Temp 97.7 97.7 Pulse 64 66 66 70 Resp 18 B/P (MAP) 119/61 (80) 124/64 (84) 119/65 (83) 120/65 (83) Pulse Ox 99 O2 Delivery Nasal Cannula O2 Flow Rate 2.0 02/16/17 02/16/17 02/16/17 02/16/17 03:15 04:00 05:00 06:00 Temp 97.9 97.9 Pulse 61 62 60 64 Resp 18 B/P (MAP) 123/68 (86) 114/59 (77) 89/53 (65) 116/66 (83) Pulse Ox 99 O2 Delivery Nasal Cannula O2 Flow Rate 2.0 02/16/17 02/16/17 02/16/17 08:38 10:27 10:59 Temp 96.4 96.4 Pulse 71 71 Resp 18 B/P (MAP) 122/71 120/71 (87) Pulse Ox 100 O2 Delivery Nasal Cannula Room Air O2 Flow Rate 2.0 Intake and Output 02/16/17 02/16/17 02/17/17 15:00 23:00 07:00 Intake Total 300 ml Balance 300 ml REID HAQ III, DO Feb 16, 2017 12:24
--- NOTE | 2017-02-16 12:30 | CARD ---
APPROVED REPORT EXAM: Two-dimensional and M-mode echocardiogram with Doppler and color Doppler. Other Information Quality : Good INDICATION LV Function:Systolic Pulmonary Embolism 2D DIMENSIONS RVDd3.7 (2.9-3.5cm)Left Atrium(2D)4.4 (1.6-4.0cm) IVSd1.3 (0.7-1.1cm)Aortic Root(2D)3.1 (2.0-3.7cm) LVDd5.0 (3.9-5.9cm)LVOT Diameter2.1 (1.8-2.4cm) PWd1.4 (0.7-1.1cm)LVDs2.5 (2.5-4.0cm) FS (%) 30.0 %SV97.0 ml LVEF(%)60.0 (>50%) Aortic Valve AoV Peak Dinh.180.2cm/sAoV VTI31.0cm AO Peak GR.13.0mmHgLVOT VTI 26.60cm AO Mean GR.7mmHgAVA (VTI)3.07cm2 Mitral Valve MV E Lorlavca67.7cm/sMV DECEL [id number] MV A Pgjsixhe88.5cm/sE/A Ratio1.0 TDI Lateral E' P. V16.35cm/sMedial E' P. V5.53cm/s E/Lateral E'5.1E/Medial E'15.1 Tricuspid Valve TR P. Ihmehqph396lq/sRAP CALVXLNT3hrVo TR Peak Gr.51ekKhCNFB26poPi Pulmonary Vein S1 Mblwhvtu88.0cm/sS2 Ncwjafhj07.26cm/s D2 Vozrviyu03.3cm/s LEFT VENTRICLE The left ventricle is normal size. There is mild concentric left ventricular hypertrophy. The left ve ntricular systolic function is normal and the ejection fraction is within normal range. The Ejection Fraction is 55-60%. There is normal LV segmental wall motion. Transmitral Doppler flow pattern is Gra de I-abnormal relaxation pattern. RIGHT VENTRICLE The right ventricle is normal size. The right ventricular systolic function is normal. ATRIA The left atrium is mildly dilated. The right atrium size is normal. The interatrial septum is intact with no evidence for an atrial septal defect or patent foramen ovale as noted on 2-D or Doppler imagi ng. AORTIC VALVE The aortic valve is sclerotic. Doppler and Color Flow revealed no significant aortic regurgitation. T here is no significant aortic valvular stenosis. MITRAL VALVE The mitral valve is normal in structure and function. There is no evidence of mitral valve prolapse. There is no mitral valve stenosis. Doppler and Color Flow revealed no mitral valve regurgitation note d. TRICUSPID VALVE The tricuspid valve is normal in structure and function. Doppler and Color Flow revealed trace tricus pid regurgitation. The PA pressure was estimated at 33 mmHg. There is no tricuspid valve stenosis. PULMONIC VALVE The pulmonary valve is normal in structure and function. Doppler and Color Flow revealed no pulmonic valvular regurgitation. There is no pulmonic valvular stenosis. GREAT VESSELS The aortic root is normal in size. The ascending aorta is normal in size. The IVC is normal in size a nd collapses >50% with inspiration. PERICARDIAL EFFUSION There is no evidence of significant pericardial effusion. Critical Notification Critical Value: No <Conclusion> The left ventricular systolic function is normal and the ejection fraction is within normal range. Th e Ejection Fraction is 55-60%. There is normal LV segmental wall motion. Doppler and Color Flow revealed trace tricuspid regurgitation. The PA pressure was estimated at 33 mm Hg.
--- NOTE | 2017-02-16 13:34 | PDOC ---
PULMONARY PROGRESS NOTES Subjective PT FEELS BETTER Vitals Vital Signs Date Time Temp Pulse Resp B/P (MAP) Pulse Ox O2 Delivery O2 Flow Rate FiO2 02/16/17 10:59 96.4 71 18 120/71 (87) 100 Room Air 96.4 02/16/17 08:38 2.0 ROS: No Nausea, No Chest Pain, No Abdominal Pain, No Increase Cough Lungs: Clear Cardiovascular: S1, S2 Abdomen: Soft Neuro Exam: Alert Extremities: No Edema Skin: Warm Labs Laboratory Tests Test 02/15/17 11:49 02/15/17 21:15 02/16/17 03:00 White Blood Count 10.5 x10^3/uL (4.0-11.0) 8.3 x10^3/uL (4.0-11.0) Red Blood Count 5.26 x10^6/uL (4.30-5.70) 4.57 x10^6/uL (4.30-5.70) Hemoglobin 15.2 g/dL (13.0-17.5) 13.0 g/dL (13.0-17.5) Hematocrit 44.0 % (39.0-53.0) 38.5 % (39.0-53.0) Mean Corpuscular Volume 84 fL (79-100) 84 fL (79-100) Mean Corpuscular Hemoglobin 29 pg (25-35) 28 pg (25-35) Mean Corpuscular Hemoglobin Concent 35 g/dL (31-37) 34 g/dL (31-37) Red Cell Distribution Width 13.4 % (11.5-14.5) 13.8 % (11.5-14.5) Platelet Count 184 x10^3/uL (140-400) 178 x10^3/uL (140-400) Neutrophils (%) (Auto) 77 % (31-73) 64 % (31-73) Lymphocytes (%) (Auto) 11 % (24-48) 21 % (24-48) Monocytes (%) (Auto) 6 % (0-9) 7 % (0-9) Eosinophils (%) (Auto) 5 % (0-3) 8 % (0-3) Basophils (%) (Auto) 1 % (0-3) 1 % (0-3) Neutrophils # (Auto) 8.0 x10^3uL (1.8-7.7) 5.3 x10^3uL (1.8-7.7) Lymphocytes # (Auto) 1.1 x10^3/uL (1.0-4.8) 1.7 x10^3/uL (1.0-4.8) Monocytes # (Auto) 0.7 x10^3/uL (0.0-1.1) 0.6 x10^3/uL (0.0-1.1) Eosinophils # (Auto) 0.5 x10^3/uL (0.0-0.7) 0.6 x10^3/uL (0.0-0.7) Basophils # (Auto) 0.1 x10^3/uL (0.0-0.2) 0.1 x10^3/uL (0.0-0.2) Prothrombin Time 14.1 SEC (11.7-14.0) Prothromb Time International Ratio 1.2 (0.8-1.1) D-Dimer (Kelsey) 3.96 ug/mlFEU (0.00-0.50) Sodium Level 139 mmol/L (136-145) 141 mmol/L (136-145) Potassium Level 4.3 mmol/L (3.5-5.1) 4.0 mmol/L (3.5-5.1) Chloride Level 103 mmol/L (98-107) 106 mmol/L (98-107) Carbon Dioxide Level 27 mmol/L (21-32) 26 mmol/L (21-32) Anion Gap 9 (6-14) 9 (6-14) Blood Urea Nitrogen 15 mg/dL (8-26) 12 mg/dL (8-26) Creatinine 1.1 mg/dL (0.7-1.3) 0.9 mg/dL (0.7-1.3) Estimated GFR (Cockcroft-Gault) 69.5 87.6 Glucose Level 113 mg/dL (70-99) 94 mg/dL (70-99) Calcium Level 9.2 mg/dL (8.5-10.1) 8.4 mg/dL (8.5-10.1) Magnesium Level 2.0 mg/dL (1.8-2.4) Creatine Kinase 136 U/L (39-308) Creatine Kinase MB (Mass) 1.2 ng/mL (0.0-3.6) Creatine Kinase MB Relative Index 0.9 % (0-4) Troponin I Quantitative 0.023 ng/mL (0.000-0.055) 0.038 ng/mL (0.000-0.055) 0.022 ng/mL (0.000-0.055) HN-Pix-T-Type Natriuretic Peptide 243 pg/mL (0-124) Lipase 127 U/L (73-393) Thyroid Stimulating Hormone (TSH) 3.246 uIU/mL (0.358-3.74) Laboratory Tests Test 02/15/17 21:15 02/16/17 03:00 Troponin I Quantitative 0.038 ng/mL (0.000-0.055) 0.022 ng/mL (0.000-0.055) White Blood Count 8.3 x10^3/uL (4.0-11.0) Red Blood Count 4.57 x10^6/uL (4.30-5.70) Hemoglobin 13.0 g/dL (13.0-17.5) Hematocrit 38.5 % (39.0-53.0) Mean Corpuscular Volume 84 fL (79-100) Mean Corpuscular Hemoglobin 28 pg (25-35) Mean Corpuscular Hemoglobin Concent 34 g/dL (31-37) Red Cell Distribution Width 13.8 % (11.5-14.5) Platelet Count 178 x10^3/uL (140-400) Neutrophils (%) (Auto) 64 % (31-73) Lymphocytes (%) (Auto) 21 % (24-48) Monocytes (%) (Auto) 7 % (0-9) Eosinophils (%) (Auto) 8 % (0-3) Basophils (%) (Auto) 1 % (0-3) Neutrophils # (Auto) 5.3 x10^3uL (1.8-7.7) Lymphocytes # (Auto) 1.7 x10^3/uL (1.0-4.8) Monocytes # (Auto) 0.6 x10^3/uL (0.0-1.1) Eosinophils # (Auto) 0.6 x10^3/uL (0.0-0.7) Basophils # (Auto) 0.1 x10^3/uL (0.0-0.2) Sodium Level 141 mmol/L (136-145) Potassium Level 4.0 mmol/L (3.5-5.1) Chloride Level 106 mmol/L (98-107) Carbon Dioxide Level 26 mmol/L (21-32) Anion Gap 9 (6-14) Blood Urea Nitrogen 12 mg/dL (8-26) Creatinine 0.9 mg/dL (0.7-1.3) Estimated GFR (Cockcroft-Gault) 87.6 Glucose Level 94 mg/dL (70-99) Calcium Level 8.4 mg/dL (8.5-10.1) Medications Active Scripts Medications Dose Route/Sig Max Daily Dose Days Date Category Levofloxacin 500 Mg Tablet 1 Tab PO DAILY 02/15/17 Reported Cyclobenzaprine Hcl 7.5 Mg Tablet 7.5 Mg PO TID 02/15/17 Reported Impression . 1. Acute respiratory failure present upon admission secondary to acute pulmonary embolism. 2. Acute pulmonary embolism. 3. Right-sided effusion related to the pulmonary embolism. 4. Pleurisy related to pulmonary embolism. 5. Left upper lobe nodule 4 mm in a nonsmoker, no need to repeat scan. 6. Palpitation secondary to above. . Plan . D/C HOME ELIQUIS RX WRITTEN NOTE FOR WORK WRITTEN ANSWERED ALL QUESTION AT BEDSIDE NO TRAVELLING TILL MAR 07 FOLLOW UP IN [address] OF CHEST PAP 33 ODESSA MCCOY MD Feb 16, 2017 13:34
[2017-02-16] MEDS ORDERED: APIX5TAB PO (14:24)
[2017-02-16] MEDS ORDERED: METO25TA4 PO (14:25)
--- NOTE | 2017-02-17 01:54 | CONS ---
DATE OF CONSULTATION: 02/16/2017 CONSULTATION REQUESTED BY: Jaja Rousseau M.D. REASON FOR CONSULTATION: Pulmonary embolism and to evaluate for hypercoagulable state. 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 He noted pain in the right chest wall region on 01/25/2017. Initially, it was generalized body aches and pains, but on the 01/27/2017 it was more localized to the right chest wall region. He saw a chiropractor who thought that he had a bulging rib on the right side. He was then evaluated by his primary care physician and he was given muscular relaxants and pain medications including codeine and subsequently a Z-Jonathan. He then developed left chest pain. Then, on 02/11/2017 through 02/13/2017 he had hemoptysis. He was given Levaquin. Then, on 02/15/2017, he had palpitations and dyspnea. He presented to [facility]. He was noted to have atrial flutter. He was given Cardizem. Cardiology was consulted. He has then started on oral metoprolol. He underwent CT angiogram of the chest on 02/15/2017, which revealed bilateral moderate pulmonary embolism. He was started on anticoagulation. He underwent venous Doppler on 02/15/2017 that revealed DVT in the right popliteal vein. Pulmonary medicine was consulted and he was recommended to start on Eliquis. He denies any significant loss of weight or loss of appetite. No fevers, chills or night sweats. No nose bleeds or gum bleeding. No hematemesis, melena, hematochezia, no hematuria. No history of easy bruisability. He denies abdominal pain, nausea, or vomiting. PAST MEDICAL HISTORY: History of laparoscopic knee surgery. FAMILY HISTORY: No family history of thrombophilia. SOCIAL HISTORY: No smoking or alcohol abuse. He travels quite a lot for his work. REVIEW OF SYSTEMS: A 12-point review of system was performed. Pertinent positives are mentioned in the history of present illness. Rest of the system review is negative. PHYSICAL EXAMINATION: GENERAL APPEARANCE: The patient is a 56-year-old gentleman who is well developed, well nourished, and in no acute cardiorespiratory distress. VITAL SIGNS: Blood pressure 119/73, temperature 97.9. HEENT: Head atraumatic, normocephalic. Eyes: No icterus. NECK: Supple. CHEST: Bilaterally symmetrical. HEART: S1, S2 normal. ABDOMEN: Soft, nontender. CENTRAL NERVOUS SYSTEM: No focal deficits. LYMPHATICS: No lymphadenopathy. SKIN: No rashes. PSYCHOLOGIC: Mood and affect are appropriate. MUSCULOSKELETAL: No joint effusions. LABORATORY DATA: WBC 8.3, hemoglobin 13, platelet count 178, creatinine 0.9, calcium 8.4. IMPRESSION AND PLAN: 1. Bilateral pulmonary embolism diagnosed on 02/15/2017. I agree with the current ongoing anticoagulation 2. Hypercoagulable state workup has already been ordered. The labs that are already ordered include factor V Leiden mutation, lupus anticoagulant, cardiolipin antibodies, antithrombin 3 and protein C and protein S levels. I will also order prothrombin gene mutation studies. There are no clinical signs or symptoms to suggest malignancy. I discussed in detail with the patient and family. I suspect that the provoking event is his flight travel. On an average he travels on flights that are at least 2-3 hours long. I have advised to him regarding precautions for future travel. Appreciate pulmonary consultation. I discussed with Dr. Odessa Charles. 3. Deep vein thrombosis of the right lower extremity due to periods of immobility from frequent flight travel. Continue anticoagulation as planned. 4. I agree that he would need at least 6 months of anticoagulation. 5. He will follow up with Dr. Odessa Charles in 3 months for a followup CT scan of the chest. 6. He will follow up with me in the next 3 weeks to discuss the results of the hypercoagulable state workup. JASWINDER CARMICHAEL MD DR: CHRISTOPHER/luciana JOB#: [id number] / [id number] ODESSA Merino MD
[2017-02-18 07:55] LABS: LUPUS ANTICOAGULANT SEE SEPARATE REPORT
== END 2017-02-16 15:20 | disposition home or self-care (01) | DRG 175 ==
LOC: ER 11:34 → 2 NORTH 12:30
PROVIDERS: ADMIT Internal Medicine; ATTEND Internal Medicine
DX: I26.99 Other pulmonary embolism without acute cor pulmonale (principal); J96.00 Acute respiratory failure, unspecified whether with hypoxia or hypercapnia; J90 Pleural effusion, not elsewhere classified; D68.59 Other primary thrombophilia; I48.92 Unspecified atrial flutter; I82.401 Acute embolism and thrombosis of unspecified deep veins of right lower extremity; Z88.0 Allergy status to penicillin; Z88.8 Allergy status to other drugs, medicaments and biological substances
CPT/HCPCS: 36415; 71010; 71275; 80048; 82553; 83090; 83690; 83735; 83880; 84443; 84484; 85025; 85379; 85610; 93005; 93306; 93970; 96365; 96366; 96376; J1650; J3490; Q9967; 99285-25

== ENCOUNTER → 2017-06-19 | Outpatient (CLI) | payer BC ==
[2017-06-19] MEDS: IOHEXOL 300 MG/ML 100ML VIAL. IV ×2 (09:46)
== END | disposition home or self-care (01) ==
LOC: KCIC CT 09:14
DX: I26.99 Other pulmonary embolism without acute cor pulmonale (principal); K76.89 Other specified diseases of liver; K76.0 Fatty (change of) liver, not elsewhere classified; R91.1 Solitary pulmonary nodule; Z86.718 Personal history of other venous thrombosis and embolism
CPT/HCPCS: 71275; 93971; Q9967

== ENCOUNTER 2018-04-17 11:50 | Inpatient (IN) | payer BC ==
[~2018-04-17] VITALS: Ht 188 cm; Wt 117.9 kg
[~2018-04-17 11:50] MED LIST: APIX5TAB PO; CYCL7.5T PO; LEVO500T8 PO; METO25TA4 PO
[2018-04-17] MEDS ORDERED: dilTIAZem IV PUSH 25 MG/5 ML VIAL IVP ONE (12:15)
[2018-04-17 12:26] LABS: BASO # 0.1 x10^3/uL (0.0-0.2); BASO % 1 % (0-3); EOS # 0.2 x10^3/uL (0.0-0.7); EOS % 2 % (0-3); HEMATOCRIT 46.7 % (39.0-53.0); HEMOGLOBIN 16.4 g/dL (13.0-17.5); LYMPH # 1.5 x10^3/uL (1.0-4.8); LYMPH % 16 % (24-48); MEAN CORPUSCULAR HEMOGLOBIN 31 pg (25-35); MEAN CORPUSCULAR HGB CONC 35 g/dL (31-37); MEAN CORPUSCULAR VOLUME 87 fL (79-100); MONO # 0.9 x10^3/uL (0.0-1.1); MONO % 10 % (0-9); NEUT # 6.5 x10^3uL (1.8-7.7); NEUT % 72 % (31-73); PLATELET COUNT 166 x10^3/uL (140-400); RED BLOOD COUNT 5.36 x10^6/uL (4.30-5.70); RED CELL DISTRIBUTION WIDTH 13.5 % (11.5-14.5); WHITE BLOOD COUNT 9.1 x10^3/uL (4.0-11.0)
--- NOTE | 2018-04-17 12:28 | RAD ---
Chest radiograph 04/17/2018 12:13 PM INDICATION: Rapid heart rate COMPARISON: February 15, 2017 TECHNIQUE: Portable upright frontal view of the chest is provided. FINDINGS: The cardiomediastinal silhouette is within normal limits. There are no pleural effusions. There is no pulmonary vascular congestion. There is no pneumothorax. The lungs are clear. No significant osseous abnormality is identified. IMPRESSION: No acute cardiopulmonary process. Electronically signed by: Soo Joy MD (04/17/2018 12:24 PM) [facility]
[2018-04-17 12:30] LABS: CREATININE ISTAT 1.1 mg/dL (0.5-1.4); ION CA ISTAT 1.18 mmol/L (1.13-1.32); POTASSIUM ISTAT 4.4 mmol/L (3.5-5.0)
[2018-04-17 12:36] LABS: CALCIUM 9.1 mg/dL (8.5-10.1); CREATININE 1.1 mg/dL (0.7-1.3); GFR 69.2; POTASSIUM 4.5 mmol/L (3.5-5.1)
[2018-04-17 12:41] LABS: ALBUMIN 3.8 g/dL (3.4-5.0); ALBUMIN/GLOBULIN RATIO 1.1 (1.0-1.7); TOTAL BILIRUBIN 1.6 mg/dL (0.2-1.0); TOTAL PROTEIN 7.2 g/dL (6.4-8.2)
[2018-04-17 12:42] LABS: PROTHROMBIN TIME PATIENT 14.7 SEC (11.7-14.0)
[2018-04-17] MEDS ORDERED: IOHEXOL 300 MG/ML 100ML VIAL. IV ONE (13:00)
--- NOTE | 2018-04-17 13:12 | PDOC1 ---
History and Physical Date of Admission Date of Admission DATE: 04/17/18 TIME: 13:04 Identification/Chief Complaint Chief Complaint dizzy, fast heart rate Source Source: Caregiver, Chart review, Patient History of Present Illness History of Present Illness Very pleasant 57 year old male, known to me, February 2017 when he was here for first time unprovoked PE, advised Eliquis twice a day for life and he has been taking that. At that time also diagnosed with atrial flutter, discharged appropriately on beta glen and Eliquis. Was seen by cardiology summer this year and beta glen was stopped as he was doing okay and back to normal sinus rhythm. DOing well until today, dizzy, on sitting up, SOA, palpitations. NO CP. Heart rate anywhere between 80s to 160s. NO reports of hypoxia. Cardizem push given at ER, heart rate still in the 130s. No chest pains with occasional palpitations. Not heavy caffeine drinker. Clean lifestyle. Travels frequently for work, recent one was a [facility] travel by air flight. He wore compression stockings during the fight and did the leg exercises. CT Angio pending. Cardiology has been called, likely will Cardizem drip overnight. Lots of questions by at bedside, we did discuss A. fib, treatment including chemical versus electrical cardioversion. They're curious if he has a new PE again. Last CT angio and venous Doppler done as outpatient in heme oncology office were negative, clots have resolved, summer 2017 He is currently suffering from acute bronchitis, CXR is neg Past Medical History Cardiovascular: No pertinent hx Pulmonary: No pertinent hx, Bronchitis GI: No pertinent hx Heme/Onc: No pertinent hx Hepatobiliary: No pertinent hx Psych: No pertinent hx Rheumatologic: No pertinent hx Infectious disease: No pertinent hx Renal/: No pertinent hx Endocrine: No pertinent hx Past Surgical History Past Surgical History: Arthroscopy Family History Family History: Cancer Social History Smoke: No ALCOHOL: none Drugs: None Current Medications Current Medications Current Medications Diltiazem HCl (Cardizem Iv Push) 10 mg 1X ONCE IVP Last administered on at 12:22; Start 04/17/18 at 12:15; Stop 04/17/18 at 12:16; Status DC Apixaban (Eliquis) 5 mg BID PO ; Start 04/17/18 at 21:00 Metoprolol Tartrate (Lopressor) 25 mg BID PO ; Start 04/17/18 at 21:00 Cyclobenzaprine HCl (Flexeril) 7.5 mg TID PO ; Start 04/17/18 at 14:00 Iohexol (Omnipaque 300 Mg/ml) 90 ml 1X ONCE IV ; Start 04/17/18 at 13:00; Stop 04/17/18 at 13:01; Status DC Active Scripts Active Reported Metoprolol Tartrate 25 Mg Tablet 1 Tab PO BID Eliquis (Apixaban) 5 Mg Tablet 10 Mg PO BID Cyclobenzaprine Hcl 7.5 Mg Tablet 7.5 Mg PO TID Allergies Allergies: Coded Allergies: Penicillins (Verified Allergy, Intermediate, Unknown, 02/15/17) Childhood allergy, unknown response. albuterol (Verified Allergy, Intermediate, Shortness of Air, 02/15/17) ROS Review of System NAsal sinus congestion, mild cough, the rest of ROS 14 point negative Physical Exam General: Alert, Oriented X3, Cooperative, No acute distress HEENT: Atraumatic, PERRLA, EOMI Lungs: Clear to auscultation, Normal air movement Heart: S1S2, no thrills, no rubs, no gallops, no murmurs, irregularly irregular Cardiovascular: S1, S2 Abdomen: Normal bowel sounds, Soft, No tenderness, No hepatosplenomegaly, No masses Male Genitals Exam: normal genitalia, normal prostate Rectal Exam: not examined PELVIC: Nml ext genitalia Extremities: No clubbing, No cyanosis, No edema, Normal pulses, No tenderness/ swelling Skin: No rashes, No breakdown, No significant lesion Neuro: Normal gait, Normal speech, Strength at 5/5 X4 ext, Normal tone, Sensation intact, Cranial nerves 3-12 NL, Reflexes 2+ Psych/Mental Status: Mental status NL, Mood NL Vitals Vitals Vital Signs Date Time Temp Pulse Resp B/P (MAP) Pulse Ox O2 Delivery O2 Flow Rate FiO2 04/17/18 12:22 140 136/90 04/17/18 11:55 98.3 18 96 Room Air 98.3 Labs Labs Laboratory Tests Test 04/17/18 12:03 04/17/18 12:11 White Blood Count 9.1 x10^3/uL (4.0-11.0) Red Blood Count 5.36 x10^6/uL (4.30-5.70) Hemoglobin 16.4 g/dL (13.0-17.5) Hematocrit 46.7 % (39.0-53.0) Mean Corpuscular Volume 87 fL (79-100) Mean Corpuscular Hemoglobin 31 pg (25-35) Mean Corpuscular Hemoglobin Concent 35 g/dL (31-37) Red Cell Distribution Width 13.5 % (11.5-14.5) Platelet Count 166 x10^3/uL (140-400) Neutrophils (%) (Auto) 72 % (31-73) Lymphocytes (%) (Auto) 16 % (24-48) Monocytes (%) (Auto) 10 % (0-9) Eosinophils (%) (Auto) 2 % (0-3) Basophils (%) (Auto) 1 % (0-3) Neutrophils # (Auto) 6.5 x10^3uL (1.8-7.7) Lymphocytes # (Auto) 1.5 x10^3/uL (1.0-4.8) Monocytes # (Auto) 0.9 x10^3/uL (0.0-1.1) Eosinophils # (Auto) 0.2 x10^3/uL (0.0-0.7) Basophils # (Auto) 0.1 x10^3/uL (0.0-0.2) Prothrombin Time 14.7 SEC (11.7-14.0) Prothromb Time International Ratio 1.2 (0.8-1.1) Sodium Level 141 mmol/L (136-145) Potassium Level 4.5 mmol/L (3.5-5.1) Chloride Level 104 mmol/L (98-107) Carbon Dioxide Level 29 mmol/L (21-32) Anion Gap 8 (6-14) 19 mmol/L (6-14) Blood Urea Nitrogen 13 mg/dL (8-26) Creatinine 1.1 mg/dL (0.7-1.3) Estimated GFR (Cockcroft-Gault) 69.2 BUN/Creatinine Ratio 12 (6-20) Glucose Level 104 mg/dL (70-99) 103 mg/dL (70-99) Calcium Level 9.1 mg/dL (8.5-10.1) Total Bilirubin 1.6 mg/dL (0.2-1.0) Aspartate Amino Transf (AST/SGOT) 23 U/L (15-37) Alanine Aminotransferase (ALT/SGPT) 43 U/L (16-63) Alkaline Phosphatase 54 U/L (46-116) Troponin I Quantitative 0.029 ng/mL (0.000-0.055) MX-Aep-A-Type Natriuretic Peptide 1075 pg/mL (0-124) Total Protein 7.2 g/dL (6.4-8.2) Albumin 3.8 g/dL (3.4-5.0) Albumin/Globulin Ratio 1.1 (1.0-1.7) Bedside Hemoglobin 16.0 g/dL (14-18) Bedside Hematocrit 47 % (37-52) Bedside Sodium 141 mmol/L (135-145) Bedside Potassium 4.4 mmol/L (3.5-5.0) Bedside Chloride 102 mmol/L (98-110) Bedside Total CO2 26 mmol/L (23-32) Bedside Blood Urea Nitrogen 13 mg/dL (8-26) Bedside Creatinine 1.1 mg/dL (0.5-1.4) Bedside Ionized Calcium (Minna) 1.18 mmol/L (1.13-1.32) Bedside Troponin I 0.04 ng/ml (<0.08) Laboratory Tests Test 04/17/18 12:03 04/17/18 12:11 White Blood Count 9.1 x10^3/uL (4.0-11.0) Red Blood Count 5.36 x10^6/uL (4.30-5.70) Hemoglobin 16.4 g/dL (13.0-17.5) Hematocrit 46.7 % (39.0-53.0) Mean Corpuscular Volume 87 fL (79-100) Mean Corpuscular Hemoglobin 31 pg (25-35) Mean Corpuscular Hemoglobin Concent 35 g/dL (31-37) Red Cell Distribution Width 13.5 % (11.5-14.5) Platelet Count 166 x10^3/uL (140-400) Neutrophils (%) (Auto) 72 % (31-73) Lymphocytes (%) (Auto) 16 % (24-48) Monocytes (%) (Auto) 10 % (0-9) Eosinophils (%) (Auto) 2 % (0-3) Basophils (%) (Auto) 1 % (0-3) Neutrophils # (Auto) 6.5 x10^3uL (1.8-7.7) Lymphocytes # (Auto) 1.5 x10^3/uL (1.0-4.8) Monocytes # (Auto) 0.9 x10^3/uL (0.0-1.1) Eosinophils # (Auto) 0.2 x10^3/uL (0.0-0.7) Basophils # (Auto) 0.1 x10^3/uL (0.0-0.2) Prothrombin Time 14.7 SEC (11.7-14.0) Prothromb Time International Ratio 1.2 (0.8-1.1) Sodium Level 141 mmol/L (136-145) Potassium Level 4.5 mmol/L (3.5-5.1) Chloride Level 104 mmol/L (98-107) Carbon Dioxide Level 29 mmol/L (21-32) Anion Gap 8 (6-14) 19 mmol/L (6-14) Blood Urea Nitrogen 13 mg/dL (8-26) Creatinine 1.1 mg/dL (0.7-1.3) Estimated GFR (Cockcroft-Gault) 69.2 BUN/Creatinine Ratio 12 (6-20) Glucose Level 104 mg/dL (70-99) 103 mg/dL (70-99) Calcium Level 9.1 mg/dL (8.5-10.1) Total Bilirubin 1.6 mg/dL (0.2-1.0) Aspartate Amino Transf (AST/SGOT) 23 U/L (15-37) Alanine Aminotransferase (ALT/SGPT) 43 U/L (16-63) Alkaline Phosphatase 54 U/L (46-116) Troponin I Quantitative 0.029 ng/mL (0.000-0.055) XE-Tfd-D-Type Natriuretic Peptide 1075 pg/mL (0-124) Total Protein 7.2 g/dL (6.4-8.2) Albumin 3.8 g/dL (3.4-5.0) Albumin/Globulin Ratio 1.1 (1.0-1.7) Bedside Hemoglobin 16.0 g/dL (14-18) Bedside Hematocrit 47 % (37-52) Bedside Sodium 141 mmol/L (135-145) Bedside Potassium 4.4 mmol/L (3.5-5.0) Bedside Chloride 102 mmol/L (98-110) Bedside Total CO2 26 mmol/L (23-32) Bedside Blood Urea Nitrogen 13 mg/dL (8-26) Bedside Creatinine 1.1 mg/dL (0.5-1.4) Bedside Ionized Calcium (Minna) 1.18 mmol/L (1.13-1.32) Bedside Troponin I 0.04 ng/ml (<0.08) VTE Prophylaxis Ordered VTE Prophylaxis Devices: Yes VTE Pharmacological Prophylaxi: Yes Assessment/Plan Assessment/Plan Recurrent A flutter - Rate control, Cardizem drip if cards agrees Continue home Eliquis, he he is compliantly taking BB taken off summer 2017 as was NSR and doing well History of unprovoked PE February 2017-recent interval scans shows resolution of the clot - CT angiogram done ordered, I agree Acute bronchitis - H1 antag, supportive meds, no PNA on CXR PLAN:Seen in ER Dw ER staff Dw pt and COnt eliquis, rate control CT angio Home meds reconciled ALLEN MURILLO MD Apr 17, 2018 13:12
[2018-04-17] MEDS ORDERED: guaiFENesin DM 200MG/20MG 10 ML SYRUP PO PRN (13:15)
[2018-04-17] MEDS ORDERED: FLUTICASONE 50MCG/NASAL SPRAY 16GM BOTTLE. NS PRN (13:15)
[2018-04-17] MEDS ORDERED: ACETAMINOPHEN 500 MG TABLET PO PRN (13:15)
[2018-04-17] MEDS: CETIRIZINE HCL 10 MG TABLET. PO SCH (13:30)
[2018-04-17] MEDS ORDERED: dilTIAZem INJ 125 MG in IV DEXTROSE 5% 100ML 100 ML IV PRN (13:30)
--- NOTE | 2018-04-17 13:31 | RAD ---
PQRS Compliance Statement: One or more of the following individualized dose reduction techniques were utilized for this examination: 1. Automated exposure control 2. Adjustment of the mA and/or kV according to patient size 3. Use of iterative reconstruction technique CT angiography chest with contrast 04/17/2018 1:01 PM INDICATION: Chest pain, shortness of breath with history of pulmonary embolism. Tachycardia. COMPARISON: CT chest February 15, 2017 TECHNIQUE: Axial CT images of the chest were obtained after the intravenous administration of 100 mL Omnipaque 300. Coronal and sagittal reformats are provided. Maximum intensity projection images of the thoracic vasculature are provided. FINDINGS: The thyroid gland is normal in appearance. There are no pathologically enlarged axillary, mediastinal or hilar lymph nodes. There is a 4 mm right hilar lymph node. The heart size is within normal limits. Trace pericardial fluid is present, likely physiologic. Thoracic aorta is normal in course and caliber. There is adequate opacification of the pulmonary arterial system. There there are no filling defects within the pulmonary arterial system to suggest acute or chronic pulmonary embolus. Stable 2 mm solid are noted left upper lobe (series 3, image 43). Calcified granulomas are identified in the left lung measuring up to 5 mm in the left upper lobe. There is a 3 mm solid noncalcified pleura nodule in the right upper lobe (series 3, image 56). Findings are stable compared to prior examination from February 15, 2017. 14 mm nodular opacity in the right costophrenic angle. There are no pulmonary infiltrates. There are no pleural effusions. No pulmonary vascular congestion or pneumothorax. Visualized portions of the upper abdomen are within normal limits. 2.8cm cyst is identified in the lateral segment left hepatic lobe. No suspicious osseous lesions are visualized. IMPRESSION: There is no evidence for acute or chronic pulmonary embolism. Stable 3 mm solid noncalcified pulmonary nodules. There is a nodular opacity at the right lung base measuring 14 mm which may be associated with discoid atelectasis. However, primary lung malignancy is a differential consideration and follow-up PET CT or 3 month follow-up chest CT is recommended. 4 mm right hilar lymph node may be reactive. Electronically signed by: Soo Joy MD (04/17/2018 1:27 PM) [facility]
[2018-04-17] MEDS ORDERED: CYCLOBENZAPRINE 10 MG TABLET. PO PRN (14:00)
[2018-04-17] MEDS ORDERED: CYCLOBENZAPRINE 10 MG TABLET. PO SCH (14:00)
--- NOTE | 2018-04-17 14:54 | PHYS DOC ---
Past Medical History Past Medical History: Other Additional Past Medical Histor: PE Past Surgical History: Tonsillectomy, Other Additional Past Surgical Histo: bilateral knee Alcohol Use: Occasionally Drug Use: None Adult General Chief Complaint Chief Complaint: RAPID HEART RATE HPI HPI Patient is a 57 year old BIBA CC SOB AND PALPITATIONS. Patient is FEELING THIS WAY since last night really no chest pain feels like it' s hard to take a deep breath felt similar to last time he had a PE SYMPTOMS MODERATE NO EXAC OR ALLEV FACTORS NO RADIATION Review of Systems Review of Systems Constitutional: Denies fever or chills [] Eyes: Denies change in visual acuity, redness, or eye pain [] HENT: Denies nasal congestion or sore throat [] Respiratory: Denies cough GI: Denies abdominal pain, : Denies dysuria or hematuria [] Musculoskeletal: Denies back pain or joint pain [] Integument: Denies rash or skin lesions [] Neurologic: Denies headache, focal weakness or sensory changes [] Endocrine: Denies polyuria or polydipsia [] All other systems were reviewed and found to be within normal limits, except as documented in this note. Current Medications Current Medications Current Medications Medications (Trade) Dose Ordered Sig/Yuridia Start Time Stop Time Status Last Admin Dose Admin Diltiazem HCl (Cardizem Iv Push) 10 mg 1X ONCE 04/17/18 12:15 04/17/18 12:16 DC 04/17/18 12:22 10 MG Allergies Allergies Allergies Coded Allergies Type Severity Reaction Last Updated Verified Penicillins Allergy Intermediate Unknown 02/15/17 Yes albuterol Allergy Intermediate Shortness of Air 02/15/17 Yes Physical Exam Physical Exam Constitutional: Well developed, well nourished, MILD distress, non-toxic appearance. [] HENT: Normocephalic, atraumatic, bilateral external ears normal, oropharynx moist, no oral exudates, nose normal. [] Eyes: PERRLA, EOMI, conjunctiva normal, no discharge. [] Neck: Normal range of motion, no tenderness, supple, no stridor. [] Cardiovascular:TACHY IRREGULARLY IRREGULAR NO DEF MURMUR Lungs & Thorax: Bilateral breath sounds clear to auscultation [] Abdomen: Bowel sounds normal, soft, no tenderness, no masses, no pulsatile masses. [] Skin: Warm, dry, no erythema, no rash. [] Back: No tenderness, no CVA tenderness. [] Extremities: No tenderness, no cyanosis, no clubbing, ROM intact, no edema. [] Neurologic: Alert and oriented X 3, normal motor function, normal sensory function, no focal deficits noted. [] Psychologic: Affect normal, judgement normal, mood normal. [] Current Patient Data Vital Signs Vital Signs Date Time Temp Pulse Resp B/P (MAP) Pulse Ox O2 Delivery O2 Flow Rate FiO2 04/17/18 12:30 104 16 132/68 (89) 96 Room Air 04/17/18 11:55 98.3 98.3 Lab Values Laboratory Tests Test 04/17/18 12:03 04/17/18 12:11 White Blood Count 9.1 x10^3/uL (4.0-11.0) Red Blood Count 5.36 x10^6/uL (4.30-5.70) Hemoglobin 16.4 g/dL (13.0-17.5) Hematocrit 46.7 % (39.0-53.0) Mean Corpuscular Volume 87 fL (79-100) Mean Corpuscular Hemoglobin 31 pg (25-35) Mean Corpuscular Hemoglobin Concent 35 g/dL (31-37) Red Cell Distribution Width 13.5 % (11.5-14.5) Platelet Count 166 x10^3/uL (140-400) Neutrophils (%) (Auto) 72 % (31-73) Lymphocytes (%) (Auto) 16 % (24-48) L Monocytes (%) (Auto) 10 % (0-9) H Eosinophils (%) (Auto) 2 % (0-3) Basophils (%) (Auto) 1 % (0-3) Neutrophils # (Auto) 6.5 x10^3uL (1.8-7.7) Lymphocytes # (Auto) 1.5 x10^3/uL (1.0-4.8) Monocytes # (Auto) 0.9 x10^3/uL (0.0-1.1) Eosinophils # (Auto) 0.2 x10^3/uL (0.0-0.7) Basophils # (Auto) 0.1 x10^3/uL (0.0-0.2) Prothrombin Time 14.7 SEC (11.7-14.0) H Prothrombin Time INR 1.2 (0.8-1.1) H Sodium Level 141 mmol/L (136-145) Potassium Level 4.5 mmol/L (3.5-5.1) Chloride Level 104 mmol/L (98-107) Carbon Dioxide Level 29 mmol/L (21-32) Anion Gap 8 (6-14) 19 mmol/L (6-14) H Blood Urea Nitrogen 13 mg/dL (8-26) Creatinine 1.1 mg/dL (0.7-1.3) Estimated GFR (Cockcroft-Gault) 69.2 BUN/Creatinine Ratio 12 (6-20) Glucose Level 104 mg/dL (70-99) H 103 mg/dL (70-99) H Calcium Level 9.1 mg/dL (8.5-10.1) Total Bilirubin 1.6 mg/dL (0.2-1.0) H Aspartate Amino Transferase (AST) 23 U/L (15-37) Alanine Aminotransferase (ALT) 43 U/L (16-63) Alkaline Phosphatase 54 U/L (46-116) Troponin I Quantitative 0.029 ng/mL (0.000-0.055) HG-Lpc-I-Type Natriuretic Peptide 1075 pg/mL (0-124) H Total Protein 7.2 g/dL (6.4-8.2) Albumin 3.8 g/dL (3.4-5.0) Albumin/Globulin Ratio 1.1 (1.0-1.7) POC Hemoglobin 16.0 g/dL (14-18) POC Hematocrit 47 % (37-52) POC Sodium 141 mmol/L (135-145) POC Potassium 4.4 mmol/L (3.5-5.0) POC Chloride 102 mmol/L (98-110) POC Total CO2 26 mmol/L (23-32) POC Blood Urea Nitrogen 13 mg/dL (8-26) POC Creatinine 1.1 mg/dL (0.5-1.4) POC Ionized Calcium (Minna) 1.18 mmol/L (1.13-1.32) POC Troponin I 0.04 ng/ml (<0.08) Laboratory Tests 04/17/18 12:03 Laboratory Tests 04/17/18 12:03 04/17/18 12:11 EKG EKG EKG shows a atrial flutter with ventricular rate of 1:30 clear flutter waves are seen repeat EKG later showed a rate of 102 but same underlying supraventricular rhythm[] Radiology/Procedures Radiology/Procedures [] Impressions: IMPRESSION: There is no evidence for acute or chronic pulmonary embolism. Stable 3 mm solid noncalcified pulmonary nodules. There is a nodular opacity at the right lung base measuring 14 mm which may be associated with discoid atelectasis. However, primary lung malignancy is a differential consideration and follow-up PET CT or 3 month follow-up chest CT is recommended. 4 mm right hilar lymph node may be reactive. Electronically signed by: Pedro Batista MD (04/17/2018 1:27 PM) [facility] DICTATED and SIGNED BY: PEDRO BATISTA MD DATE: 04/17/18 1321 Course & Med Decision Making Course & Med Decision Making Pertinent Labs and Imaging studies reviewed. (See chart for details) []I noted the CT read and I reviewed in detail with the patient and his in fact the patient wrote down the exact impression and knows the importance of follow-up in 3 months. Discussed with Lizett With the patient as well for now patient is on diltiazem. No new PE. Troponin negative so far. Multiple questions answered and patient and voiced understanding. Dr. ROUSSEAU ADMIT D/W HER IN ER. Dragon Disclaimer Dragon Disclaimer This electronic medical record was generated, in whole or in part, using a voice recognition dictation system. Departure Departure Impression: Primary Impression: Atrial flutter Disposition: ADMITTED INPATIENT Admitting Physician: Jaja Rousseau Condition: STABLE Referrals: SIOMARA GRANT MD (PCP) MAURICE MAYFIELD MD Apr 17, 2018 14:54
[2018-04-17 15:00] VITALS: BP 118/83
[2018-04-17 19:20] VITALS: BP 112/63
--- NOTE | 2018-04-17 19:29 | EKG ---
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
--- NOTE | 2018-04-17 19:30 | EKG ---
[facility] [address] [place] [address] Test Date: 2018-04-17 Test Time: 12:33:20 Pat Name: LACEY PHILLIPS Department: Room: 201 1 Gender: M Contact Acid Plant Operator: : 1960 Requested By: MAURICE MAYFIELD Order Number: [id number] Reading MD: Rufino Caban MD Measurements Intervals [place] Rate: 102 P: [place]: QRS: -15 QRSD: 94 T: -1 QT: 338 QTc: 445 Interpretive Statements ATRIAL FIBRILLATION WITH RVR NON-SPECIFIC ST/T CHANGES Electronically Signed On 04-19-2018 10:26:26 NATURAL SCIENCE CURATOR by Rufino Caban MD
[2018-04-17] MEDS: APIXABAN 5 MG TABLET. PO SCH (21:27)
[2018-04-17] MEDS: METOPROLOL TART IMMED RELEASE 25 MG TABLET. PO SCH (21:28)
[2018-04-17 23:12] VITALS: BP 109/68
[2018-04-18 03:10] VITALS: BP 129/64
[2018-04-18 07:00] VITALS: BP 132/64
[2018-04-18 08:05] VITALS: BP 132/64
[2018-04-18] MEDS: APIXABAN 5 MG TABLET. PO SCH (08:05)
[2018-04-18] MEDS: METOPROLOL TART IMMED RELEASE 25 MG TABLET. PO SCH (08:05)
[2018-04-18] MEDS: CETIRIZINE HCL 10 MG TABLET. PO SCH (08:06)
[2018-04-18] MEDS ORDERED: METO25TA4 PO (08:33)
--- NOTE | 2018-04-18 08:57 | PDOC3 ---
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 Brief Hospital Course Allergies Allergies Coded Allergies Type Severity Reaction Last Updated Verified Penicillins Allergy Intermediate Unknown 02/15/17 Yes albuterol Allergy Intermediate Shortness of Air 02/15/17 Yes Vital Signs Vital Signs Date Time Temp Pulse Resp B/P (MAP) Pulse Ox O2 Delivery O2 Flow Rate FiO2 04/18/18 08:05 65 132/64 04/18/18 07:20 Room Air 04/18/18 07:00 98.5 18 97 98.5 Lab Results Laboratory Tests Test 04/17/18 12:03 04/17/18 12:11 04/17/18 15:59 04/17/18 18:58 White Blood Count 9.1 x10^3/uL (4.0-11.0) Red Blood Count 5.36 x10^6/uL (4.30-5.70) Hemoglobin 16.4 g/dL (13.0-17.5) Hematocrit 46.7 % (39.0-53.0) Mean Corpuscular Volume 87 fL (79-100) Mean Corpuscular Hemoglobin 31 pg (25-35) Mean Corpuscular Hemoglobin Concent 35 g/dL (31-37) Red Cell Distribution Width 13.5 % (11.5-14.5) Platelet Count 166 x10^3/uL (140-400) Neutrophils (%) (Auto) 72 % (31-73) Lymphocytes (%) (Auto) 16 % (24-48) Monocytes (%) (Auto) 10 % (0-9) Eosinophils (%) (Auto) 2 % (0-3) Basophils (%) (Auto) 1 % (0-3) Neutrophils # (Auto) 6.5 x10^3uL (1.8-7.7) Lymphocytes # (Auto) 1.5 x10^3/uL (1.0-4.8) Monocytes # (Auto) 0.9 x10^3/uL (0.0-1.1) Eosinophils # (Auto) 0.2 x10^3/uL (0.0-0.7) Basophils # (Auto) 0.1 x10^3/uL (0.0-0.2) Prothrombin Time 14.7 SEC (11.7-14.0) Prothromb Time International Ratio 1.2 (0.8-1.1) Sodium Level 141 mmol/L (136-145) Potassium Level 4.5 mmol/L (3.5-5.1) Chloride Level 104 mmol/L (98-107) Carbon Dioxide Level 29 mmol/L (21-32) Anion Gap 8 (6-14) 19 mmol/L (6-14) Blood Urea Nitrogen 13 mg/dL (8-26) Creatinine 1.1 mg/dL (0.7-1.3) Estimated GFR (Cockcroft-Gault) 69.2 BUN/Creatinine Ratio 12 (6-20) Glucose Level 104 mg/dL (70-99) 103 mg/dL (70-99) Calcium Level 9.1 mg/dL (8.5-10.1) Total Bilirubin 1.6 mg/dL (0.2-1.0) Aspartate Amino Transf (AST/SGOT) 23 U/L (15-37) Alanine Aminotransferase (ALT/SGPT) 43 U/L (16-63) Alkaline Phosphatase 54 U/L (46-116) Troponin I Quantitative 0.029 ng/mL (0.000-0.055) 0.070 ng/mL (0.000-0.055) 0.050 ng/mL (0.000-0.055) CS-Eek-A-Type Natriuretic Peptide 1075 pg/mL (0-124) Total Protein 7.2 g/dL (6.4-8.2) Albumin 3.8 g/dL (3.4-5.0) Albumin/Globulin Ratio 1.1 (1.0-1.7) Bedside Hemoglobin 16.0 g/dL (14-18) Bedside Hematocrit 47 % (37-52) Bedside Sodium 141 mmol/L (135-145) Bedside Potassium 4.4 mmol/L (3.5-5.0) Bedside Chloride 102 mmol/L (98-110) Bedside Total CO2 26 mmol/L (23-32) Bedside Blood Urea Nitrogen 13 mg/dL (8-26) Bedside Creatinine 1.1 mg/dL (0.5-1.4) Bedside Ionized Calcium (Minna) 1.18 mmol/L (1.13-1.32) Bedside Troponin I 0.04 ng/ml (<0.08) Laboratory Tests Test 04/17/18 12:03 04/17/18 12:11 04/17/18 15:59 04/17/18 18:58 White Blood Count 9.1 x10^3/uL (4.0-11.0) Red Blood Count 5.36 x10^6/uL (4.30-5.70) Hemoglobin 16.4 g/dL (13.0-17.5) Hematocrit 46.7 % (39.0-53.0) Mean Corpuscular Volume 87 fL (79-100) Mean Corpuscular Hemoglobin 31 pg (25-35) Mean Corpuscular Hemoglobin Concent 35 g/dL (31-37) Red Cell Distribution Width 13.5 % (11.5-14.5) Platelet Count 166 x10^3/uL (140-400) Neutrophils (%) (Auto) 72 % (31-73) Lymphocytes (%) (Auto) 16 % (24-48) Monocytes (%) (Auto) 10 % (0-9) Eosinophils (%) (Auto) 2 % (0-3) Basophils (%) (Auto) 1 % (0-3) Neutrophils # (Auto) 6.5 x10^3uL (1.8-7.7) Lymphocytes # (Auto) 1.5 x10^3/uL (1.0-4.8) Monocytes # (Auto) 0.9 x10^3/uL (0.0-1.1) Eosinophils # (Auto) 0.2 x10^3/uL (0.0-0.7) Basophils # (Auto) 0.1 x10^3/uL (0.0-0.2) Prothrombin Time 14.7 SEC (11.7-14.0) Prothromb Time International Ratio 1.2 (0.8-1.1) Sodium Level 141 mmol/L (136-145) Potassium Level 4.5 mmol/L (3.5-5.1) Chloride Level 104 mmol/L (98-107) Carbon Dioxide Level 29 mmol/L (21-32) Anion Gap 8 (6-14) 19 mmol/L (6-14) Blood Urea Nitrogen 13 mg/dL (8-26) Creatinine 1.1 mg/dL (0.7-1.3) Estimated GFR (Cockcroft-Gault) 69.2 BUN/Creatinine Ratio 12 (6-20) Glucose Level 104 mg/dL (70-99) 103 mg/dL (70-99) Calcium Level 9.1 mg/dL (8.5-10.1) Total Bilirubin 1.6 mg/dL (0.2-1.0) Aspartate Amino Transf (AST/SGOT) 23 U/L (15-37) Alanine Aminotransferase (ALT/SGPT) 43 U/L (16-63) Alkaline Phosphatase 54 U/L (46-116) Troponin I Quantitative 0.029 ng/mL (0.000-0.055) 0.070 ng/mL (0.000-0.055) 0.050 ng/mL (0.000-0.055) VY-Hbr-O-Type Natriuretic Peptide 1075 pg/mL (0-124) Total Protein 7.2 g/dL (6.4-8.2) Albumin 3.8 g/dL (3.4-5.0) Albumin/Globulin Ratio 1.1 (1.0-1.7) Bedside Hemoglobin 16.0 g/dL (14-18) Bedside Hematocrit 47 % (37-52) Bedside Sodium 141 mmol/L (135-145) Bedside Potassium 4.4 mmol/L (3.5-5.0) Bedside Chloride 102 mmol/L (98-110) Bedside Total CO2 26 mmol/L (23-32) Bedside Blood Urea Nitrogen 13 mg/dL (8-26) Bedside Creatinine 1.1 mg/dL (0.5-1.4) Bedside Ionized Calcium (Minna) 1.18 mmol/L (1.13-1.32) Bedside Troponin I 0.04 ng/ml (<0.08) Brief Hospital Course Mr. Cardenas is a 57 old pleasant male, comes in because of a flutter A. fib RVR. This is the second time this has happened. First episode was February [id number] when he was diagnosed with unprovoked PE, recommended lifelong Eliquis by heme onc - which he is taking. This time there is no PE. He reverted to normal sinus rhythm after being Cardizem drip for only a few hours at [facility]. He's feeling well, no symptoms. Waiting for cardiology to see. I did resume the metoprolol 25 by mouth twice a day and he has gotten 2 doses already- medication he was started on when he was a flutter last year Waiting for cards to see, If cleared by cardiology then can go home today later and follow cardiology as instructed as outpatient. To cont eliquis BID BB Rx with pt if cards agrees Discharge Information Condition at Discharge: Improved, Stable Follow Up: Weeks (Dr Khan as instructed) Disposition/Orders: D/C to Home Scheduled Apixaban (Eliquis) 5 Mg Tablet, 10 MG PO BID, (Reported) Entered as Reported by: MALKA PADGETT on 02/16/171423 Last Action: Continued on 04/17/181221 by ALLEN MURILLO Cyclobenzaprine Hcl (Cyclobenzaprine Hcl) 7.5 Mg Tablet, 7.5 MG PO TID, ( Reported) Entered as Reported by: MINGO CHANEY on 02/15/171924 Last Action: Converted on 04/17/181221 by ALLEN MURILLO Metoprolol Tartrate (Metoprolol Tartrate) 25 Mg Tablet, 1 TAB PO BID, #180 Ref 1 (Reported) Entered as Reported by: MALKA PADGETT on 02/16/171424 Last Action: Continued on 04/17/181221 by ALLEN MURILLO Metoprolol Tartrate (Metoprolol Tartrate) 25 Mg Tablet, 1 TAB PO BID for a fib, #180 Ref 1 Prescribed by: ALLEN MURILLO on 04/18/18 0833 ALLEN MURILLO MD Apr 18, 2018 08:57
--- NOTE | 2018-04-18 11:52 | PDOC2 ---
CONSULT Date of Consult Date of Consult DATE: 04/18/18 TIME: 11:45 Reason for Consult Reason for Consult: Atrial fibrillation/flutter Referring Physician Referring Physician: Dr. Rousseau Identification/Chief Complaint Chief Complaint Palpitations and shortness of breath Source Source: Patient History of Present Illness Reason for Visit: The patient is a pleasant 57-year-old male who came to the emergency room last evening for episodes of increased palpitations and shortness of breath. The patient has a history of a PE approximately one year ago and has been on [place] course since that time. He also had an episode of atrial flutter at the time of his original pulmonary emboli and had been treated with beta blockers but has been off beta blockers for approximately 4 months. The patient's EKG showed atrial flutter with a rate of approximately 140. Chest x-ray showed no acute processes. CTA showed no pulmonary emboli but stable 3 mm solid noncalcified pulmonary nodules. The patient was treated with IV Cardizem and converted to sinus rhythm overnight. This morning he is feeling well. He has remained in sinus rhythm. Metoprolol 25 by mouth twice a day has been restarted. Past Medical History Cardiovascular: No pertinent hx, AFIB Pulmonary: No pertinent hx, Bronchitis, Pulmonary embolus GI: No pertinent hx Heme/Onc: No pertinent hx Hepatobiliary: No pertinent hx Psych: No pertinent hx Rheumatologic: No pertinent hx Infectious disease: No pertinent hx Renal/: No pertinent hx Endocrine: No pertinent hx Past Surgical History Past Surgical History: Arthroscopy, Tonsillectomy Family History Family History: Cancer Social History No ALCOHOL: none Drugs: None Lives: with Family Current Medications Current Medications Current Medications Diltiazem HCl (Cardizem Iv Push) 10 mg 1X ONCE IVP Last administered on at 12:22; Start 04/17/18 at 12:15; Stop 04/17/18 at 12:16; Status DC Apixaban (Eliquis) 5 mg BID PO Last administered on 04/18/18at 08:05; Start at 21:00; Stop 04/18/18 at 10:35; Status DC Metoprolol Tartrate (Lopressor) 25 mg BID PO Last administered on 04/18/18at 08 :05; Start 04/17/18 at 21:00; Stop 04/18/18 at 10:35; Status DC Cyclobenzaprine HCl (Flexeril) 7.5 mg TID PO ; Start 04/17/18 at 14:00; Stop 04/17/18 at 14:00; Status DC Iohexol (Omnipaque 300 Mg/ml) 90 ml 1X ONCE IV Last administered on at 13:14; Start 04/17/18 at 13:00; Stop 04/17/18 at 13:01; Status DC Cyclobenzaprine HCl (Flexeril) 7.5 mg PRN TID PRN PO spasms; Start 04/17/18 at 14:00; Stop 04/18/18 at 10:35; Status DC Acetaminophen (Tylenol) 500 mg PRN Q6HRS PRN PO MILD PAIN / TEMP; Start at 13:15; Stop 04/18/18 at 10:35; Status DC Cetirizine HCl (ZyrTEC) 10 mg DAILY PO ; Start 04/17/18 at 13:30; Stop at 10:35; Status DC Guaifenesin (Robitussin Dm) 10 ml PRN Q6HRS PRN PO COUGH; Start 04/17/18 at 13 :15; Stop 04/18/18 at 10:35; Status DC Fluticasone Propionate (Flonase) 2 spray DAILY PRN NS congestion; Start at 13:15; Stop 04/18/18 at 10:35; Status DC Diltiazem HCl 125 mg/Dextrose 125 ml @ 5 mls/hr CONT PRN IV SEE I/O RECORD Last administered on 04/17/18at 14:01; Start 04/17/18 at 13:30; Stop 04/17/18 at 19:00; Status DC Active Scripts Active Metoprolol Tartrate 25 Mg Tablet 1 Tab PO BID Reported Metoprolol Tartrate 25 Mg Tablet 1 Tab PO BID Eliquis (Apixaban) 5 Mg Tablet 10 Mg PO BID Cyclobenzaprine Hcl 7.5 Mg Tablet 7.5 Mg PO TID Allergies Allergies: Coded Allergies: Penicillins (Verified Allergy, Intermediate, Unknown, 02/15/17) Childhood allergy, unknown response. albuterol (Verified Allergy, Intermediate, Shortness of Air, 02/15/17) ROS Respiratory: YES: SOB with excertion Cardiovascular: yes Palpitations Physical Exam General: No acute distress HEENT: Atraumatic Lungs: Clear to auscultation Heart: Regular rate Abdomen: Normal bowel sounds Extremities: No clubbing Vitals VITALS Vital Signs Date Time Temp Pulse Resp B/P (MAP) Pulse Ox O2 Delivery O2 Flow Rate FiO2 04/18/18 08:05 65 132/64 04/18/18 07:20 Room Air 04/18/18 07:00 98.5 18 97 98.5 Labs Labs Laboratory Tests Test 04/17/18 12:03 04/17/18 12:11 04/17/18 15:59 04/17/18 18:58 White Blood Count 9.1 x10^3/uL (4.0-11.0) Red Blood Count 5.36 x10^6/uL (4.30-5.70) Hemoglobin 16.4 g/dL (13.0-17.5) Hematocrit 46.7 % (39.0-53.0) Mean Corpuscular Volume 87 fL (79-100) Mean Corpuscular Hemoglobin 31 pg (25-35) Mean Corpuscular Hemoglobin Concent 35 g/dL (31-37) Red Cell Distribution Width 13.5 % (11.5-14.5) Platelet Count 166 x10^3/uL (140-400) Neutrophils (%) (Auto) 72 % (31-73) Lymphocytes (%) (Auto) 16 % (24-48) Monocytes (%) (Auto) 10 % (0-9) Eosinophils (%) (Auto) 2 % (0-3) Basophils (%) (Auto) 1 % (0-3) Neutrophils # (Auto) 6.5 x10^3uL (1.8-7.7) Lymphocytes # (Auto) 1.5 x10^3/uL (1.0-4.8) Monocytes # (Auto) 0.9 x10^3/uL (0.0-1.1) Eosinophils # (Auto) 0.2 x10^3/uL (0.0-0.7) Basophils # (Auto) 0.1 x10^3/uL (0.0-0.2) Prothrombin Time 14.7 SEC (11.7-14.0) Prothromb Time International Ratio 1.2 (0.8-1.1) Sodium Level 141 mmol/L (136-145) Potassium Level 4.5 mmol/L (3.5-5.1) Chloride Level 104 mmol/L (98-107) Carbon Dioxide Level 29 mmol/L (21-32) Anion Gap 8 (6-14) 19 mmol/L (6-14) Blood Urea Nitrogen 13 mg/dL (8-26) Creatinine 1.1 mg/dL (0.7-1.3) Estimated GFR (Cockcroft-Gault) 69.2 BUN/Creatinine Ratio 12 (6-20) Glucose Level 104 mg/dL (70-99) 103 mg/dL (70-99) Calcium Level 9.1 mg/dL (8.5-10.1) Total Bilirubin 1.6 mg/dL (0.2-1.0) Aspartate Amino Transf (AST/SGOT) 23 U/L (15-37) Alanine Aminotransferase (ALT/SGPT) 43 U/L (16-63) Alkaline Phosphatase 54 U/L (46-116) Troponin I Quantitative 0.029 ng/mL (0.000-0.055) 0.070 ng/mL (0.000-0.055) 0.050 ng/mL (0.000-0.055) BQ-Kif-T-Type Natriuretic Peptide 1075 pg/mL (0-124) Total Protein 7.2 g/dL (6.4-8.2) Albumin 3.8 g/dL (3.4-5.0) Albumin/Globulin Ratio 1.1 (1.0-1.7) Bedside Hemoglobin 16.0 g/dL (14-18) Bedside Hematocrit 47 % (37-52) Bedside Sodium 141 mmol/L (135-145) Bedside Potassium 4.4 mmol/L (3.5-5.0) Bedside Chloride 102 mmol/L (98-110) Bedside Total CO2 26 mmol/L (23-32) Bedside Blood Urea Nitrogen 13 mg/dL (8-26) Bedside Creatinine 1.1 mg/dL (0.5-1.4) Bedside Ionized Calcium (Minna) 1.18 mmol/L (1.13-1.32) Bedside Troponin I 0.04 ng/ml (<0.08) Laboratory Tests Test 04/17/18 12:03 04/17/18 12:11 04/17/18 15:59 04/17/18 18:58 White Blood Count 9.1 x10^3/uL (4.0-11.0) Red Blood Count 5.36 x10^6/uL (4.30-5.70) Hemoglobin 16.4 g/dL (13.0-17.5) Hematocrit 46.7 % (39.0-53.0) Mean Corpuscular Volume 87 fL (79-100) Mean Corpuscular Hemoglobin 31 pg (25-35) Mean Corpuscular Hemoglobin Concent 35 g/dL (31-37) Red Cell Distribution Width 13.5 % (11.5-14.5) Platelet Count 166 x10^3/uL (140-400) Neutrophils (%) (Auto) 72 % (31-73) Lymphocytes (%) (Auto) 16 % (24-48) Monocytes (%) (Auto) 10 % (0-9) Eosinophils (%) (Auto) 2 % (0-3) Basophils (%) (Auto) 1 % (0-3) Neutrophils # (Auto) 6.5 x10^3uL (1.8-7.7) Lymphocytes # (Auto) 1.5 x10^3/uL (1.0-4.8) Monocytes # (Auto) 0.9 x10^3/uL (0.0-1.1) Eosinophils # (Auto) 0.2 x10^3/uL (0.0-0.7) Basophils # (Auto) 0.1 x10^3/uL (0.0-0.2) Prothrombin Time 14.7 SEC (11.7-14.0) Prothromb Time International Ratio 1.2 (0.8-1.1) Sodium Level 141 mmol/L (136-145) Potassium Level 4.5 mmol/L (3.5-5.1) Chloride Level 104 mmol/L (98-107) Carbon Dioxide Level 29 mmol/L (21-32) Anion Gap 8 (6-14) 19 mmol/L (6-14) Blood Urea Nitrogen 13 mg/dL (8-26) Creatinine 1.1 mg/dL (0.7-1.3) Estimated GFR (Cockcroft-Gault) 69.2 BUN/Creatinine Ratio 12 (6-20) Glucose Level 104 mg/dL (70-99) 103 mg/dL (70-99) Calcium Level 9.1 mg/dL (8.5-10.1) Total Bilirubin 1.6 mg/dL (0.2-1.0) Aspartate Amino Transf (AST/SGOT) 23 U/L (15-37) Alanine Aminotransferase (ALT/SGPT) 43 U/L (16-63) Alkaline Phosphatase 54 U/L (46-116) Troponin I Quantitative 0.029 ng/mL (0.000-0.055) 0.070 ng/mL (0.000-0.055) 0.050 ng/mL (0.000-0.055) JP-Mdi-R-Type Natriuretic Peptide 1075 pg/mL (0-124) Total Protein 7.2 g/dL (6.4-8.2) Albumin 3.8 g/dL (3.4-5.0) Albumin/Globulin Ratio 1.1 (1.0-1.7) Bedside Hemoglobin 16.0 g/dL (14-18) Bedside Hematocrit 47 % (37-52) Bedside Sodium 141 mmol/L (135-145) Bedside Potassium 4.4 mmol/L (3.5-5.0) Bedside Chloride 102 mmol/L (98-110) Bedside Total CO2 26 mmol/L (23-32) Bedside Blood Urea Nitrogen 13 mg/dL (8-26) Bedside Creatinine 1.1 mg/dL (0.5-1.4) Bedside Ionized Calcium ([place]) 1.18 mmol/L (1.13-1.32) Bedside Troponin I 0.04 ng/ml (<0.08) Images Images Chest x-ray shows no acute changes. CT scan of the chest shows no pulmonary emboli. He has stable 3 mm solid noncalcified pulmonary nodules. Suggestion was made of a repeat CT scan in 3 months by the radiology service. Assessment/Plan Assessment/Plan 1. Paroxysmal atrial flutter. Patient has regained sinus rhythm and has remained in sinus rhythm for most the night and this morning. Beta blockers have been restarted. Patient continues on chronic anticoagulation. We'll increase activity and discharge later today. Will follow-up in the office in 3- 4 weeks. 2. History of previous pulmonary emboli. Continues on chronic anticoagulation. CT scanning shows no new pulmonary embolism. Thank you for allowing us to participate in the care of your patient. DAVID TOBIN MD Apr 18, 2018 11:52
== END 2018-04-18 10:30 | disposition home or self-care (01) | DRG 310 ==
LOC: ER 11:50 → 2 NORTH 12:30
PROVIDERS: ADMIT Internal Medicine; ATTEND Internal Medicine
DX: I48.92 Unspecified atrial flutter (principal); J20.9 Acute bronchitis, unspecified; R91.8 Other nonspecific abnormal finding of lung field; I48.0 Paroxysmal atrial fibrillation; Z79.01 Long term (current) use of anticoagulants; Z86.711 Personal history of pulmonary embolism; Z90.89 Acquired absence of other organs; Z88.0 Allergy status to penicillin; Z88.8 Allergy status to other drugs, medicaments and biological substances; Z80.9 Family history of malignant neoplasm, unspecified; Z79.899 Other long term (current) drug therapy
CPT/HCPCS: 36415; 71045; 71275; 80047; 80053; 83880; 84484; 85025; 85610; 93005; 96374; J3490; Q9967; 99285-25